=== PATIENT | female | born 1980 | race Caucasian/White ===

== ENCOUNTER → 2019-11-21 | Outpatient (REF) | payer MEDICAID, OTHER | LOC: M LAB REF 17:33 | PROVIDERS: ATTEND Physician Assistant | DX: R21 Rash and other nonspecific skin eruption (principal) ==

== ENCOUNTER → 2020-09-18 | Outpatient (CLI) | payer OTHER ==
[2020-09-18 18:15] LABS: C REACTIVE PROTEIN QUANTITATIV < 0.30 MG/DL (0.00-0.30); CPK CREATINE PHOSPHOKINASE 50 U/L (26-192); IRON (FE) 111 UG/DL (50-170); MAGNESIUM LEVEL 2.5 MG/DL (1.8-2.4); PHOSPHORUS LEVEL 3.5 MG/DL (2.5-4.9)
[2020-09-18 18:23] LABS: TOTAL 25(OH) VITAMIN D 12.3 NG/ML (30.0-100.0); VITAMIN B12 LEVEL 258 PG/ML (247-911)
[2020-09-21 19:14] LABS: ANA (HEP2) Negative (.)
== END ==
LOC: M LAB 16:36
PROVIDERS: ATTEND Internal Medicine
DX: M25.40 Effusion, unspecified joint (principal)

== ENCOUNTER → 2020-10-12 | Outpatient (CLI) | payer OTHER | LOC: M LAB 15:24 | PROVIDERS: ATTEND Internal Medicine Gastroenterology | DX: K58.1 Irritable bowel syndrome with constipation (principal) ==

== ENCOUNTER → 2020-10-26 | Outpatient (CLI) | payer OTHER ==
--- NOTE | 2020-10-28 16:19 | SLEEPHOME ---
DATE: 10/26/2020 ORDERED BY: Dr. Radha Escobar, Rheumatology Diagnostic home sleep testing was performed due to concern for the obstructive sleep apnea syndrome in this patient with a history of fatigue. For testing, a Niox T3 respiratory monitoring device was used. Continuous record was made of pulse, oxygen saturation, air flow, chest and abdominal strain, and body position. There was 4 hours and 47 minutes of data reviewed. During this interval, 25 respiratory events were identified of 10 seconds in duration or greater for a respiratory event index of 5.2. The events were primarily obstructive, more frequent but not exclusive to the supine posture. Baseline oxygen saturation was 92%. Saturations fell to 89%. Baseline pulse rate was 84. Pulse rate ranged 68-107. Testing was performed in both the supine and nonsupine positions. IMPRESSION: Abnormal home sleep testing with repetitive respiratory events and oxygen desaturations to 89% with a respiratory event index of 5.2 is consistent with the obstructive sleep apnea syndrome. RECOMMENDATION: As the respiratory events were associated most frequently with the supine posture, sleep position retraining for avoidance of the supine posture would be recommended. Should the patient's symptoms persist, referral for formal sleep evaluation could be considered.
== END ==
LOC: M SLEEP HO 11:41
PROVIDERS: ATTEND Internal Medicine
DX: R53.82 Chronic fatigue, unspecified (principal)

== ENCOUNTER → 2021-01-13 | Outpatient (CLI) | payer OTHER ==
[~2021-01-13] MED LIST: CLON1TAB8 PO; LINZ290C PO; NORT25CA2 PO; SERT50TA29 PO; ZOLP10TA2 PO
== END ==
LOC: M LABSMTC 10:06
PROVIDERS: ATTEND Anesthesiology
DX: Z01.812 Encounter for preprocedural laboratory examination (principal); Z20.822 Contact with and (suspected) exposure to COVID-19

== ENCOUNTER 2021-01-18 09:18 | Day surgery (SDC) | payer OTHER ==
[~2021-01-18] VITALS: Ht 172.7 cm; Wt 69.9 kg
[~2021-01-18 09:18] MED LIST changes: +NS 1,000 ML IV ONE
--- OUTSIDE RECORDS SUMMARY | 2021-01-18 09:23 | CCD | Continuity of Care Document ---
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 AUTM [phone] Problems Active Problems Provider Date Hand pain Melyssa Peña M.D. Onset: 10/08/2020 Numbness of hand Melyssa Peña M.D. Onset: 10/08/2020 Carpal tunnel syndrome Melyssa Peña M.D. Onset: 10/08/2020 Chronic neck pain Melyssa Peña M.D. Onset: 10/08/2020 Social History Type Date Description Comments Sex Unknown Tobacco Use Start: Unknown Patient is a current smoker, smo kes every day Allergies and adverse reactions Description No Known Drug Allergies Medications Active Medications SIG Qnty Indications Ordering Provide r Date Zonisamide 50mg Capsules 1 by mouth twice a day 60caps Melyssa Peña M.D. 01/04/2021 Cyanocobalamin 1000mcg/ML Solution 1 intramuscular every weekly for 4 weeks and then once a month 12units Melyssa Peña M.D. 01/04/2021 Tylenol 8 Hour 650mg Tablets ER Melyssa Peña M.D. 10/08/2020 Immunizations Description No Information Available Vital Signs Date Vital Result Comment 10/08/2020 8:36am BP Systolic 120 mmHg BP Diastolic 80 mmHg Heart Rate 72 /min Height 68 inches 5'8" Weight 141.00 lb BMI (Body Mass Index) 21.4 kg/m2 [place] Body Weight 140 lb Results Test Acquired Date Facility Test Result H/L Range Note Hgba1c + Eag 01/04/2021 [facility] HbA1c Bld-mCnc 5.0 % Normal 3.8-5.6 1, 2 Est. average glucose Bld gHb Est-sCnc 97 mg/dL 3 Laboratory test finding 01/04/2021 [facility] pital Folate SerPl-mCnc 6.5 ng/mL 4 T4 Free SerPl-mCnc 1.14 ng/dL Normal 0.89-1.76 TSH SerPl DL<=0.005 mIU/L-aCnc 0.69 u[iU]/mL Normal 0.35-5.50 Protein Electrophoresis Serum 01/04/2021 [facility] Protein, Total 7.2 g/dL 6.1-8.1 5 Albumin Spec-mCnc 4.4 g/dL 3.8-4.8 Alpha1 Glob SerPl Elph-mCnc 0.3 g/dL 0.2-0.3 Alpha2 Glob SerPl Elph-mCnc 0.9 g/dL 0.5-0.9 Laboratory studies 0.4 g/dL 0.4-0.6 Gamma glob SerPl Elph-mCnc 0.9 g/dL 0.8-1.7 Beta 2 Globulin 0.3 g/dL 0.2-0.5 Prot Pattern SerPl Elph-Imp SEE NOTE 6 Lupus Anticoag Comprehensive 01/04/2021 [facility] Hex Phase Phosp No Reportable Re <SEE NOTE> 7 LA 2 screen W Reflex-Imp see note 8 Screen aPTT 33 UCUM <=40 Screen dRVVT 34 UCUM <=45 Mixing studies PPP-Imp Not Indicated 9 Laboratory test finding 01/04/2021 [facility] pital Vit B6 SerPl-mCnc 2.9 ng/mL 2.1-21.7 10 Vitamin E 01/04/2021 [facility] A-Tocopherol Vit E SerPl-mCnc 10.5 mg/L 5.7-19.9 11 Beta+Gamma Tocopherol SerPl-mCnc <1.0 mg/L <=4.3 12 Laboratory test finding 01/04/2021 [facility] pital Vit B1 Bld-mCnc 84 UCUM 78-185 13 Vitamin E <pending> 1 PERIPHERAL POLYNEUROPATHY 2 The following ranges may be used for interpretation of results: HGBA1C degree of glucose control: Greater than 8%: Action Suggested * Less than 7%: Goal of Diabetic Therapy Less than 5.6%: Normal Factors such as duration of diabetes, adherence to therapy and the age of the patient should also be considered in assessing the degree of blood glucose control. * High risk of developing keno terminal operator complications such as retinopathy, nephropathy, neuropathy, cardiopathy, etc. Some danger of hypoglycemic reaction in Type I diabetics. Some glucose intolerant individuals and "Sub Clinical" diabetics may demonstrate HGBA1C levels in this area. 3 An A1C of 7% - the goal of d iabetic therapy - is equivalent to an EAG of 154 mg/dl. 4 FOLATE INTERPRETATION NORMAL: GREATER THAN 5.38 INDETERMINATE: 3.38 - 5.38 DEFICIENT: LESS THAN 3.37 5 THIS TEST WAS PERFORMED AT: [facility] [address] VENICE HERNANDEZ MD 6 Normal Electrophoretic Patte rn THIS TEST WAS PERFORMED AT: [facility] [address] VENICE HERNANDEZ MD 7 No Reportable Result 8 A Lupus Anticoagulant is not detected. Reference Range: Not Detected For additional information, please refer to http://education.Minilogs/faq/ZXG88g3 (This link is being provided for informa tional/ educational purposes only.) This interpretation is based on the following test results. 9 THIS TEST WAS PERFORMED AT: [facility] [address] CARRINGTON BONNER MD,PHD 10 Vitamin supplementation with in 24 hours prior to blood draw may affect the accuracy of the results. This test was developed and its analytical performance characteristics have been determined by [employer] [place], [place]. It has not been cleared or approved by the U.S. Food and Drug Administration. This assay has been validated pursuant to the CLIA regulations and is used for clinical purposes. THIS TEST WAS PERFORMED AT: [facility]/[employer] [address] CARRINGTON BONNER MD,PHD 11 Levels of alpha-tocopherol < 5 mg/L are consistent with Vitamin E deficiency in adults. 12 Vitamin supplementation with in 24 hours prior to blood draw may affect the accuracy of the results. This test was developed and its analytical performance characteristics have been determined by [employer] [place], [place]. It has not been cleared or approved by the U.S. Food and Drug Administration. This assay has been validated pursuant to the CLIA regulations and is used for clinical purposes. THIS TEST WAS PERFORMED AT: [facility]/[address] CARRINGTON BONNER MD,PHD 13 Vitamin supplementation with in 24 hours prior to blood draw may affect the accuracy of the results. This test was developed and its analytical performance characteristics have been determined by [employer] [place], [place]. It has not been cleared or approved by the U.S. Food and Drug Administration. This assay has been validated pursuant to the CLIA regulations and is used for clinical purposes. THIS TEST WAS PERFORMED AT: [facility]/[address] CARRINGTON BONNER MD,PHD Procedures Date Code Description Status 01/04/2021 39766 Office/Outpatient Established Mo d MDM 30-39 Min Completed 10/12/2020 12461 Nerve Conduction 13+ Studies Com pleted 10/12/2020 68121 Needle Electromyography Complete , Five Or More Muscles Studied Completed 10/12/2020 49341 Needle Electromyography Complete , Five Or More Muscles Studied Completed 10/08/2020 74488 Nerve Conduction 13+ Studies Com pleted 10/08/2020 98962 Needle Electromyogra phy Non Extremity Done With Nerve Conduction Completed 10/08/2020 01067 Needle Electromyogra phy Non Extremity Done With Nerve Conduction Completed 10/08/2020 72172 Needle Electromyography Complete , Five Or More Muscles Studied Completed 10/08/2020 54948 Needle Electromyography Complete , Five Or More Muscles Studied Completed Medical Devices Description No Information Available Encounters Type Date Location Provider Dx Diagnosis Office Visit 01/04/2021 12:30p Main office - Ankur Peña M.D. M47.892 Other spondylosis, cervical region M54.59 Other low back pain M47.896 Other spondylosis, lumbar re gion G43.819 Other migraine, intractable, without status migrainosus M54.2 Cervicalgia Assessments Date Code Description Provider 01/04/2021 M47.892 Other spondylosis, cervical toney on Melyssa Casey, M.D. 01/04/2021 M54.59 Other low back pain Melyssa Casey, M.D. 01/04/2021 M47.896 Other spondylosis, lumbar region Melyssa Casey, M.D. 01/04/2021 G43.819 Other migraine, intractable, wit hout status migrainosus Melyssa Casey, M.D. 01/04/2021 M54.2 Cervicalgia Melyssa Casey, M.D . 10/12/2020 M54.5 Low back pain Melsysa Casey, M.D . 10/12/2020 R20.2 Paresthesia of skin Melyssa Casey, M.D. 10/12/2020 G60.9 Hereditary and idiopathic neurop athy, unspecified Melyssa Casey, M.D. 10/08/2020 M79.641 Pain in right hand Melyssa Casey, M.D. 10/08/2020 G56.00 Carpal tunnel syndrome, unspecif ied upper limb Melyssa Casey, M.D. 10/08/2020 M79.642 Pain in left hand Melyssa Casey, M .D. 10/08/2020 M54.12 Radiculopathy, cervical region A bdul Casey, M.D. 10/08/2020 R20.2 Paresthesia of skin Melyssa Casey, M.D. Plan of Treatment Future Appointment(s):* 02/02/2021 10:30 am - Melyssa Peña M.D. at Main office - [place] Functional Status Description No Information Available Mental Status Description No Information Available Referrals Description No Information Available
--- OUTSIDE RECORDS SUMMARY | 2021-01-18 09:23 | CCD | Continuity of Care Document ---
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 AUTM [phone] Problems Active Problems Provider Date Hand pain [...] lb BMI (Body Mass Index) 21.4 kg/m2 [place] Body Weight 140 lb Results Test Acquired Date Facility Test Result H/L Range Note Hgba1c + Eag 01/04/2021 [facility] HbA1c Bld-mCnc 5.0 % Normal 3.8-5.6 1, 2 Est. average glucose Bld gHb Est-sCnc 97 mg/dL 3 Laboratory test finding 01/04/2021 [facility] pital Folate SerPl-mCnc 6.5 ng/mL 4 T4 Free SerPl-mCnc 1.14 ng/dL Normal 0.89-1.76 TSH SerPl DL<=0.005 mIU/L-aCnc 0.69 u[iU]/mL Normal 0.35-5.50 Protein Electrophoresis Serum 01/04/2021 [facility] Protein, Total 7.2 g/dL 6.1-8.1 5 Albumin Spec-mCnc 4.4 g/dL 3.8-4.8 Alpha1 Glob SerPl Elph-mCnc 0.3 g/dL 0.2-0.3 Alpha2 Glob SerPl Elph-mCnc 0.9 g/dL 0.5-0.9 Laboratory studies 0.4 g/dL 0.4-0.6 Gamma glob SerPl Elph-mCnc 0.9 g/dL 0.8-1.7 Beta 2 Globulin 0.3 g/dL 0.2-0.5 Prot Pattern SerPl Elph-Imp SEE NOTE 6 Lupus Anticoag Comprehensive 01/04/2021 [facility] Hex Phase Phosp No Reportable Re <SEE NOTE> 7 LA 2 screen W Reflex-Imp see note 8 Screen aPTT 33 UCUM <=40 Screen dRVVT 34 UCUM <=45 Mixing studies PPP-Imp Not Indicated 9 Laboratory test finding 01/04/2021 [facility] pital Vit B6 SerPl-mCnc 2.9 ng/mL 2.1-21.7 10 Vitamin E 01/04/2021 [facility] A-Tocopherol Vit E SerPl-mCnc 10.5 mg/L 5.7-19.9 11 Beta+Gamma Tocopherol SerPl-mCnc <1.0 mg/L <=4.3 12 Laboratory test finding 01/04/2021 [facility] pital Vit B1 Bld-mCnc 84 UCUM 78-185 [...] glucose control. * High risk of developing roasterman complications such as retinopathy, nephropathy, neuropathy, cardiopathy, [...] 3.37 5 THIS TEST WAS PERFORMED AT: [facility] [id number] VENICE HERNANDEZ MD 6 Normal Electrophoretic Patte rn THIS TEST WAS PERFORMED AT: [facility] [phone] VENICE HERNANDEZ MD 7 No Reportable Result 8 A Lupus Anticoagulant is not detected. Reference Range: Not Detected For additional information, please refer to http://education.WeatherBug/faq/WKE44h3 (This link is being provided for informa tional/ educational purposes only.) This interpretation is based on the following test results. 9 THIS TEST WAS PERFORMED AT: [facility] [address] CARRINGTON BONNER MD,PHD 10 Vitamin supplementation with in 24 hours prior to blood draw may affect the accuracy of the results. This test was developed and its analytical performance characteristics have been determined by [facility] [place], [place]. It has not been cleared or approved by the U.S. Food and Drug Administration. This assay has been validated pursuant to the CLIA regulations and is used for clinical purposes. THIS TEST WAS PERFORMED AT: [facility] [address] CARRINGTON BONNER MD,PHD 11 Levels of alpha-tocopherol < 5 mg/L are consistent with Vitamin E deficiency in adults. 12 Vitamin supplementation with in 24 hours prior to blood draw may affect the accuracy of the results. This test was developed and its analytical performance characteristics have been determined by [employer] [place], [place]. It has not been cleared or approved by the U.S. Food and Drug Administration. This assay has been validated pursuant to the CLIA regulations and is used for clinical purposes. THIS TEST WAS PERFORMED AT: [facility]/[address] CARRINGTON BONNER MD,PHD 13 Vitamin supplementation with in 24 hours prior to blood draw may affect the accuracy of the results. This test was developed and its analytical performance characteristics have been determined by [employer] [place], [place]. It has not been cleared or approved by the U.S. Food and Drug Administration. This assay has been validated pursuant to the CLIA regulations and is used for clinical purposes. THIS TEST WAS PERFORMED AT: [facility]/[address] CARRINGTON BONNER MD,PHD Procedures Date Code Description Status 01/04/2021 74777 Office/Outpatient Established Mo d MDM 30-39 Min Completed 10/12/2020 63700 Nerve Conduction 13+ Studies Com pleted 10/12/2020 51788 Needle Electromyography Complete , Five Or More Muscles Studied Completed 10/12/2020 90231 Needle Electromyography Complete , Five Or More Muscles Studied Completed 10/08/2020 41139 Nerve Conduction 13+ Studies Com pleted 10/08/2020 67593 Needle Electromyogra phy Non Extremity Done With Nerve Conduction Completed 10/08/2020 92474 Needle Electromyogra phy Non Extremity Done With Nerve Conduction Completed 10/08/2020 27978 Needle Electromyography Complete , Five Or More Muscles Studied Completed 10/08/2020 19683 Needle Electromyography Complete , Five Or More [...] M.D . 10/12/2020 M54.5 Low back pain Melyssa Casey, M.D . 10/12/2020 R20.2 Paresthesia of [...] Melyssa Peña M.D. at Main office - [place] Functional Status Description No Information Available Mental Status Description No Information Available Referrals Description No Information Available
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
--- OUTSIDE RECORDS SUMMARY | 2021-01-18 09:24 | CCD ---
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 I suspect that her trouble focusing that is improved by clonazepam and packed uncontrolled anxiety. We'll consider an MRI at next visit if no improvement on higher dose of sertraline ANNUAL PE-followup exam/30 with Henrik Zavala MD 08/05/2020 Routine adult history and physical (18 - 64 yrs) ANNUA L PE-followup exam/30 with Henrik Zavala MD 08/05/2020 Fibromyalgia sick [...] historical Medications Current Medications (continue as prescribed) Sertraline HCl 100 MG Oral Tablet 08/05/2020 Provid er: Henrik Zavala MD Diagnosis: Generalized anxiety disorder 1 PO QD clonazePAM 1 MG Oral Tablet 06/11/2020 Provider: Henrik Zavala MD Diagnosis: Generalized anxiety disorder 1 PO QD prn MDD=1 Reference#: [id number] Code A Zolpidem Tartrate 10 MG Oral Tablet 05/07/2020 Prov ider: Henrik Zavala MD Diagnosis: Other insomnia qhs prn #: [id number] MDD=1 Ciclopirox Olamine 0.77% External Cream 12/10/2019 Provider: Zoie BRAMBILA Diagnosis: Chantix Starting Month Pedrito 0.5 MG X 11 & 1 MG X 42 Oral Tabl et 2019 Provider: Henrik Zavala MD Diagnosis: use as directed Chantix Continuing Month Pedrito 1 MG Oral Tablet 2019 Provider: Henrik Zavala MD Diagnosis: 1 PO BID [facility] Melatonin 5 MG Oral Capsule 08/05/2019 Provider : Diagnosis: Past Medications on file Sertraline HCl 50 MG Oral Tablet 07/31/2020 - 08/05/2020 Pro vider: Henrik Zavala MD Diagnosis: 1 PO QD Belsomra 20 MG Oral Tablet 05/01/2020 - 05/07/2020 Provider: Henrik Zavala MD Diagnosis: 1 PO Q #: [id number] MDD=1 clonazePAM 1 MG Oral Tablet 05/01/2020 - 06/11/2020 Provider : Henrik Zavala MD Diagnosis: Generalized anxiety disorder 1 PO QD prn MDD=1 Reference#: [id number] Belsomra 20 MG Oral Tablet 04/24/2020 - 04/24/2020 Provider: Henrik Zavala MD Diagnosis: 1 PO QHS #: [id number] MDD=1 clonazePAM 1 MG Oral Tablet 04/01/2020 - 05/01/2020 Provider : Henrik Zavala MD Diagnosis: Generalized anxiety disorder 1 PO QD prn MDD=1 Reference#: [id number] Sertraline HCl 50 MG Oral Tablet 03/23/2020 - 07/31/2020 Pro vider: Henrik Zavala MD Diagnosis: 1 PO QD clonazePAM 1 MG Oral Tablet 02/27/2020 - 04/01/2020 Provider : Nguyen Garcia [facility]- Diagnosis: Generalized anxiety disorder 1 PO QD prn MDD=1 Reference #: [id number] Sertraline HCl 50 MG Oral Tablet 01/27/2020 - 03/23/2020 Pro vider: Henrik Zavala MD Diagnosis: 1 PO QD clonazePAM 1 MG Oral Tablet 01/22/2020 - 02/27/2020 Provider : Henrik Zavala MD Diagnosis: Generalized anxiety disorder 1 PO QD prn #: [id number] MDD=1 Nortriptyline HCl 25 MG Oral Capsule 2019 - 04/27/2020 Provider: Henrik Zavala MD Diagnosis: Fibromyalgia 1 PO QHS clonazePAM 1 MG Oral Tablet 09/02/2019 - 12/07/2019 Provider : Henrik Zavala MD Diagnosis: 1 PO QHS Code A #: [id number] MDD=1mg Nortriptyline HCl 10 MG Oral Capsule [...] Recorded Vital Signs Includes: Vital Signs from 08/06/2019 through 08/05/2020 Vital Name 08/05/2020 12:58P 04/23/2020 02:05P 12/07/2019 10:38A 2019 10:02A Blood Pressure Sitting (mmHg) 118/76 116/72 126/78 Pulse Rate-Sitting (bpm) 72 72 68 72 Respiration Rate (breaths/min) 20 18 20 18 Height (in) 68 68 68 68 Weight (lb) 139 139.8 141 Body Mass Index (kg/m2) 21.1 21.3 21.4 Body Surface Area (m2) 1.75 1.76 1.76 Blood Pressure Sitting R 120/74 BP Cuff Size Regular Results Includes: Results from 08/06/2019 through 08/05/2020 CBC W AUTO DIFF [facility] Ordered by Henrik Zavala MD [...] Auto See Note (0-2) N (Normal) Note: [id number] Ob server systems administrator: IG% IG% 100.1375 (B) Hct VFr Bld [...] test results are final unless otherwise noted. [facility] Ordered by Henrik Zavala MD on [...] results are final unless otherwise noted. LYMERFX [facility] Ordered by Henrik Zavala MD [...] when erythemamigrans is apparent.THIS TEST WAS PERFORMED AT:[email or web address] [address]NQBGPUNain CHO Reportable ResultLTNPNo Reportable ResultLLEP.LIVENTNPResponsible Observer: LYME AB SCREEN LYME AB SCREEN [id number] 911.8135 ([facility]) Reviewed by Henrik Zavala MD on 04/28/2020; All test results are final unless otherwise noted. Reported Physicians [facility] Ordered by Henrik Zavala MD on 04/23/2020 Collected: 04/23/2020 Reported: 04/27/2020 19:23 Reported Physicians See Note None Note: Reported Physicians:Ordering: Henrik Parekhding: Henrik Zavala Reviewed by Henrik Zavala MD on 04/28/2020; All test results are final unless otherwise noted. SED RATE [facility] Ordered by Henrik Zavala MD on 04/23/2020 Collected: 04/23/2020 Reported: 04/23/2020 15:57 ESR Bld Qn Westrgrn 5 (0-20) N (Normal) Note: @Severino manual test result: 5@by Karey Ireland at 04/23/20 4547.Responsible Observer: SED RATE SED RATE 100.6400 (B) Reviewed by Henrik Zavala MD on 04/24/2020; All test results are final unless otherwise noted. CRP, C-REACTIVE PROTEIN [facility] Ordered by Henrik Zavala MD on 04/23/2020 Collected: 04/23/2020 Reported: 04/23/2020 16:20 CRP SerPl-mCnc Less Than 2.9 (0.0-5.0) N (Normal) Note: @Report as less than lower limitRe sponsible Observer: CRP C-Reactive Protein 401.4355 (H) Reviewed by Henrik Zavala MD on 04/24/2020; All test results are final unless otherwise noted. Reported Physicians [facility] Ordered by Henrik Zavala MD on 04/23/2020 Collected: 04/23/2020 Reported: 04/23/2020 16:20 Reported Physicians See Note None Note: Reported Physicians:Ordering: Henrik Parekh: Henrik Zavala Reviewed by Henrik Zavala MD on 04/24/2020; All test results are final unless otherwise noted. TSH [facility] Ordered by Henrik Zavala MD on 04/23/2020 Collected: 04/23/2020 Reported: 04/23/2020 16:20 TSH SerPl DL<=0.005 mIU/L-aCnc 1.37 MicroInternationalUnitsPerMilliLiter_[Arbitrary_Con (0.35-5. 50) N (Normal) Note: Responsible Observer: TSH TSH 600 .7055 (D) Reviewed by Henrik Zavala MD on 04/28/2020; All test results are final unless otherwise noted. Reported Physicians [facility] Ordered by Henrik Zavala MD on 04/23/2020 Collected: 04/23/2020 Reported: 04/23/2020 16:20 Reported Physicians See Note None Note: Reported Physicians:Ordering: Henrik Parekh: Henrik Zavala Reviewed by Henrik Zavala MD on 04/28/2020; All test results are final unless otherwise noted. FREE T4 (LAB) [facility] Ordered by Henrik Zavala MD on 04/23/2020 Collected: 04/23/2020 Reported: 04/23/2020 16:20 T4 Free SerPl-mCnc 1.19 NanoGramsPerDeciLiter_[Mass_Concentration_Units] (0.89-1.76) N (Normal) Note: Responsible Observer: FREE T4 Free Thyroxine 600.7005 (D) Reviewed by Henrik Zavala MD on 04/24/2020; All test results are final unless otherwise noted. Reported Physicians [facility] Ordered by Henrik Zavala MD on 04/23/2020 Collected: 04/23/2020 Reported: 04/23/2020 16:20 Reported Physicians See Note None Note: Reported Physicians:Ordering: Henrik Parekh: Henrik Zavala Reviewed by Henrik Zavala MD on 04/24/2020; All test results are final unless otherwise noted. RHEUMATOID FACTOR [facility] Ordered by Henrik Zavala MD on 04/23/2020 Collected: 04/23/2020 Reported: 04/23/2020 16:20 Rheumatoid fact Ser Neph-aCnc Less Than 10.0 (0.0-14.0) N (Normal) Note: Responsible Observer: RA Rheumatoi d Factor 800.1055 (B) Reviewed by Henrik Zavala MD on 04/24/2020; All test results are final unless otherwise noted. 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 Smoking Status Unknown Procedures and Surgical History Includes: Procedures from 08/06/2019 through 08/05/2020 Procedures Code Diagnosis Performing Provider Service Location Service Date Flucelvax multidose PRIVATE(ages 4 & older) [address] [facility] ounter for immunization Henrik Zavala MD [facility], [facility] 12/07/2019 ADMINISTRATION 1-IMMUNIZATION(adult) [address] Encounter f or immunization Henrik Zavala MD [facility], [facility] 12/07/2019 Surgical History Last Updated History of arthroscopy of the knee R knee 2014-15 12/2019 History of total hysterectomy 2012 for [...] document type Description The memory was unimpaired No memory lapses or loss Anxiety Feels his stress levels are hig h and sometimes interfering with intimacy and concentration or focus. Interestingly she finds if she doesn't take clonazepam for a few days she starts to have more trouble focusing during the day. Denies any severe or vegetative type depression and she is doing regular exercise. Continues to struggle with some fibromyalgia symptoms A desire to continue living No suicidal tendency Functional Status Functional Status not supported for this document typeNo Functional Status Recorded Physical Exam Physical Exam not supported for this document typeNo Physical Exam Recorded Immunizations Includes: Immunizations in patient's chart Vaccine Dose # Date Site Reaction(s) Status Source Influenza, seasonal, injectable 1 12/07/2019 Left Deltoid Complete (Administered) [facility] Moderna COVID-19 vaccine 1 05/28/2020 Complete (Re ported) Patient Moderna COVID-19 vaccine 2 06/25/2020 Complete (Re ported) Patient Allergies Includes: Active, inactive, and resolved AllergiesNo Known Allergies Encounters Includes: Encounters from 08/06/2019 through 08/05/2020 Encounter Provider Location Date Check-In Time Check-Out Time D iagnosis ANNUAL PE-followup exam Henrik Zavala MD [facility], [facility] 08/05/2020 12:53PM 1:35PM Generalized Anxi ety Disorder, Routine History and Physical Adult (18 - 64 Yrs) [Patient Encounter] Henrik Zavala MD 07/06/2020 0 04/23/2020 7:39AM 04/23/2020 11:59PM [Patient Encounter] Henrik Zavala MD 06/11/2020 0 04/23/2020 5:13PM 04/23/2020 11:59PM [Patient Encounter] Henrik Zavala MD 04/24/2020 0 04/23/2020 4:56PM 04/23/2020 11:59PM sick visit Henrik Zavala MD [facility], [facility] 04/23/2020 1:53PM 2:55PM Fibromyalgia, Second noah Insomnia [Patient Encounter] Henrik Zavala MD 01/22/2020 1 4:34PM 12/07/2019 11:59PM followup Henrik Zavala MD [facility], [facility] 12/07/2019 10:23AM 10:58AM Generalized Anxiety Disorder , Secondary Insomnia followup Henrik Zavala MD [facility], [facility] 2019 9:49AM 10:22AM Fibromyalgia, Dermatomycosis Tinea Versicolor Insurance Includes: Active Insurance Policies Plan Name Member ID Group # Subscriber Relationship Effective Da inez 1 - R Insurance [id number] Hugo Newman Advance Directives Includes: Current Advance DirectivesNo Advance Directives Recorded Health Concerns Includes: Active Health ConcernsNo Active Health Concerns Recorded Goals Includes: Active GoalsNo Active Goals Recorded Interventions Includes: Interventions for active GoalsNo Interventions Recorded Evaluations & Outcomes Includes: Evaluations & Outcomes for active GoalsNo Outcomes Recorded
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
--- OUTSIDE RECORDS SUMMARY | 2021-01-18 09:24 | CCD | Continuity of Care Document ---
Author Author Cathryn BARRY Organization Unknown Address [address] [place] [address] Phone [phone] Care Team Providers Care Director Of Government Sales Name Role Phone Henrik Zavala MD [facility] [phone] Problems Description No Information Available Social History Type Date Description Comments Sex Unknown Allergies and adverse reactions Description No Information Available Medications Description No Information Available Immunizations Description No Information Available Vital Signs Description No Information Available Results Description No Information Available Procedures Description No Information Available Medical Devices Description No Information Available Encounters Description No Information Available Assessments Date Code Description Provider 12/18/2020 Z20.828 Contact with and (gutiérrez spected) exposure to other viral communicable diseases PATTY Polanco Plan of Treatment No Information Available Functional Status Description No Information Available Mental Status Description No Information Available Referrals Description No Information Available
--- OUTSIDE RECORDS SUMMARY | 2021-01-18 09:24 | CCD ---
Continuity of Care Document (CCD) Created on: 12/18/2020 Cathryn Newman External Reference #: [id number] : [id number] Sex: Female Author Author Cathryn BARRY [facility] Organization Unknown Address [address] [place] [address] Phone [phone] Care Team Providers Care Software Development Advisor Name Role Phone Henrik Zavala MD [facility] [phone] Problems Description No Information Available Social History Type Date Description Comments Sex Unknown Allergies and adverse reactions Description No Information Available Medications Description No Information Available Immunizations Description No Information Available Vital Signs Description No Information Available Results Description No Information Available Procedures Description No Information Available Medical Devices Description No Information Available Encounters Description No Information Available Assessments Description No Information Available Plan of Treatment No Information Available Functional Status Description No Information Available Mental Status Description No Information Available Referrals Description No Information Available
--- OUTSIDE RECORDS SUMMARY | 2021-01-18 09:24 | CCD | Continuity of Care Document ---
Author Cathryn Heath M.D. Organization Unknown Address [address] [place] [address] Phone [phone] Care Team Providers Care Business Analysis Consultant Name Role Phone Henrik Zavala M.D. AUTM [phone] Problems Active Problems Provider Date Hand pain [...] lb BMI (Body Mass Index) 21.4 kg/m2 [place] Body Weight 140 lb Results Test Acquired Date Facility Test Result H/L Range Note Hgba1c + Eag 01/04/2021 [facility] HbA1c Bld-mCnc 5.0 % Normal 3.8-5.6 1, 2 Est. average glucose Bld gHb Est-sCnc 97 mg/dL 3 Laboratory test finding 01/04/2021 [facility] Folate SerPl-mCnc 6.5 ng/mL 4 T4 Free SerPl-mCnc 1.14 ng/dL Normal 0.89-1.76 TSH SerPl DL<=0.005 mIU/L-aCnc 0.69 u[iU]/mL Normal 0.35-5.50 Protein Electrophoresis Serum 01/04/2021 [facility] Protein, Total 7.2 g/dL 6.1-8.1 5 1 PERIPHERAL POLYNEUROPATHY 2 The following ranges [...] glucose control. * High risk of developing exterminator helper termite complications such as retinopathy, nephropathy, neuropathy, cardiopathy, [...] 3.37 5 THIS TEST WAS PERFORMED AT: [id number] [id number] VENICE HERNANDEZ MD Procedures Date Code Description Status 01/04/2021 35663 Office/Outpatient Established Mo d MDM 30-39 Min Completed 10/12/2020 94101 Nerve Conduction 13+ Studies Com pleted 10/12/2020 94383 Needle Electromyography Complete , Five Or More Muscles Studied Completed 10/12/2020 00537 Needle Electromyography Complete , Five Or More Muscles Studied Completed 10/08/2020 25474 Nerve Conduction 13+ Studies Com pleted 10/08/2020 70567 Needle Electromyogra phy Non Extremity Done With Nerve Conduction Completed 10/08/2020 05922 Needle Electromyogra phy Non Extremity Done With Nerve Conduction Completed 10/08/2020 83405 Needle Electromyography Complete , Five Or More Muscles Studied Completed 10/08/2020 40682 Needle Electromyography Complete , Five Or More Muscles Studied Completed Medical Devices Description No Information Available Encounters Type Date Location Provider Dx Diagnosis Office Visit 01/04/2021 12:30p Main office - [place] Melyssa Casey, M.D. M47.892 Other spondylosis, cervical region M54.59 [...] 10:30 am - Melyssa Peña M.D. at [facility] Functional Status Description No Information Available Mental Status Description No Information Available Referrals Description No Information Available
--- OUTSIDE RECORDS SUMMARY | 2021-01-18 09:25 | CCD ---
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 4 30001436 Problem Vitamin D deficiency E55.9 Active confirmed 92904197 Problem Anorexia nervosa 307.1 Active confirmed 568 53955 Problem Depressive disorder, not elsewhere classified 311 Active confirmed 94576513 Problem Paresthesia R20.2 Active confirmed 74228326 Problem Chronic fatigue R53.82 Active confirmed 8422 9001 ALLERGIES No Known Allergies ENCOUNTERS from 1982 to 2020-11-15 Encounter Location Date Provider Diagnosis [facility] [address] [place] [address] [place] [address] Oct, Radha Escobar Vitamin D deficiency E55.9 ; 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 ; Joint swelling M25.40 ; Myalgia M79.10 ; Paresthesia R20.2 ; Chronic fatigue R53.82 ; Frequent headaches R51.9 ; Abdominal bloating R14.0 and Facial numbness R20.0 IMMUNIZATIONS Vaccine Route Administration Date Status COVID-19 dose #2 given elsewhere Unspecified Unknown Apr 2020 Administered COVID-19 dose #1 given elsewhere Unspecified Unknown Apr 2020 Administered SOCIAL HISTORY Tobacco Use: Social History Observation Description Date Details (start date - stop date) Former Smoker Sex Assigned At : Social History Observation Description Sex Assigned At Unknown Alcohol Screening: Question Answer Notes Did you have a drink containing alcohol in the past year? No Points 0 Interpretation Negative Tobacco Use: Question Answer Notes Are you a: former smoker Recently quit darlene tom 08/2020 REASON FOR REFERRAL No Information VITAL SIGNS Weight 149.8 lbs Oct, Weight-kg 67.95 kg Oct, Height 68 in Oct, BMI 22.77 kg/m2 Oct, Heart Rate 110 /min Oct, Respiratory Rate 20 /min Oct, Temperature 97.8 degrees Fahrenheit Oct, Oximetry 98 Oct, Blood pressure systolic 108 mm Hg Oct, Blood pressure diastolic 76 mm Hg Oct, MEDICATIONS Medication SIG (Take, Route, Frequency, Duration) Notes Start Da te End Date Status Sertraline HCl 100 MG TAKE ONE TABLET BY MOUTH EVERY DAY Oral for 90 Active clonazePAM 1 MG (Schedule IV Drug) TAKE ONE TABLET BY MOUTH EVERY DAY NEEDED MAXIMUM DAILY DOSE 1 Oral for 90 Active Zolpidem Tartrate 10 MG (Schedule IV Drug) TAKE ONE TABLET BY MOUTH EVERY EVENING AT BEDTIME NEEDED MAXIMUM DAILY DOSE ONE TABLET Oral for 25 Active Nortriptyline HCl 25 MG TAKE ONE CAPSULE BY MOUTH EV VERITO DAY AT BEDTIME Oral for 30 Active Constulose 10 GM/15ML 15 ml Orally twice daily as needed Active Chantix 1 MG TAKE ONE TABLET BY MOUTH TWICE A DAY Oral for 28 Not-Taking Vitamin D (Ergocalciferol) 1.25 MG (93548 UT) 1 capsul e Orally Weekly for 30 day(s) Active Magnesium 250 MG 1 tablet with a meal Orally Once a day for 30 day(s) Active PROCEDURES No Information RESULTS No Results REASON FOR VISIT C/o bilateral leg pain and stiffness MEDICAL (GENERAL) HISTORY Type Description Date Medical History Anxiety/depression(Dr Álvarez) Medical History Sudden weight loss Medical History Endometriosis Medical History Interstitial cystitis Medical History Psychologist- Luis Cardoza Medical History Hx migranes Medical History Fibromyalgia Medical History Vitamin D Deficiency Surgical History Laparoscopy 2005 Surgical History Uterine ablasion 2010 Surgical History Laproscopic supracervical hysterectomy Surgical History Right knee surgery x2 Hospitalization History Surgery related Hospitalization History Child x2 2004,2006 Goals Section No Information Health Concerns No Information MEDICAL EQUIPMENT No Information MENTAL STATUS No Information FUNCTIONAL STATUS No Information ASSESSMENTS Encounter Date Diagnosis Assessment Notes Treatment Notes Treatm ent Clinical Notes Oct, Vitamin D deficiency (ICD-10 - E55.9) 09/18/2020 Vitamin D 12.3 ng/mL (30-100) - Clinical presentation is exacerbated by vitamin D deficiency. Low vitamin D can be associated with fatigue, muscle weakness, muscle pain. The patient is actively supplemented with vitamin D 50,000 units x 8 weeks, which will improve the musculoskeletal health. Discussed foods with increased amounts of vitamin D (including tuna and salmon). Information concerning vitamin D provided. Oct, Magnesium disorder (ICD-10 - E83.40) 09/18/2020 Magnesium 2.5 mg/dL (1.8-2.4) - History of Magnesium disorder; will monitor the magnesium level closely. Oct, Joint swelling (ICD-10 - M25.40) There is swelling in left PIP (4,5) and ankle joints. No clinical suspicion of inflammatory arthritis at this time; inflammatory markers are normal and anti- nuclear antibody, rheumatoid factor, & ccp negative. Based on the symptomatology, physical examination, and laboratory evaluation, no further evaluation is needed. Oct, Myalgia (ICD-10 - M79.10) Given the widespread pain and somatic symptoms, further investigation was performed. Expect improvement in the symptomatology with vitamin D supplementation. Nutritional deficiencies can contribute to increased joint pain and muscle aches - vitamin B12 on the lower end of normal. Encouraged the patient to increase foods with vitamin D and vitamin B12; information provided today. Oct, Paresthesia (ICD-10 - R20.2) Given the paresthesias of the upper and lower extremities, an EMG of the upper and lower extremities were within normal limits. Oct, Chronic fatigue (ICD-10 - R53.82) Given the chronic fatigue and sleep symptomatology, the home sleep study to r/o an underlying sleep disorder - pending. Oct, Frequent headaches (ICD-10 - R51.9) Will defer to neurology for the chronic headaches. Oct, Abdominal bloating (ICD-10 - R14.0) Will defer to gastroenterology for the intermittent diarrhea, constipation, and abdominal bloating. Oct, Facial numbness (ICD-10 - R20.0) Will defer to neurology for further evaluation of the facial numbness. PLAN OF TREATMENT Medication Medication Name Sig Start Date Stop Date Vitamin D (Ergocalciferol) 1.25 MG (18277 UT) 1 capsul e Orally Weekly for 30 day(s) Treatment Notes Assessment Notes Clinical Notes Vitamin D deficiency 09/18/2020 Vitamin D 12.3 ng/mL (30-100) - Clinical presentation is exacerbated by vitamin D deficiency. Low vitamin D can be associated with fatigue, muscle weakness, muscle pain. The patient is actively supplemented with vitamin D 50,000 units x 8 weeks, which will improve the musculoskeletal health. Discussed foods with increased amounts of vitamin D (including tuna and salmon). Information concerning vitamin D provided. Magnesium disorder 09/18/2020 Magnesium 2.5 mg/dL (1.8-2.4) - History of Magnesium disorder; will monitor the magnesium level closely. Joint swelling There is swelling in left PIP (4,5) and ankle joints. No clinical suspicion of inflammatory arthritis at this time; inflammatory markers are normal and anti-nuclear antibody, rheumatoid factor, & ccp negative. Based on the symptomatology, physical examination, and laboratory evaluation, no further evaluation is needed. Myalgia Given the widespread pain and somatic symptoms, further investigation was performed. Expect improvement in the symptomatology with vitamin D supplementation. Nutritional deficiencies can contribute to increased joint pain and muscle aches - vitamin B12 on the lower end of normal. Encouraged the patient to increase foods with vitamin D and vitamin B12; information provided today. Paresthesia Given the paresthesi as of the upper and lower extremities, an EMG of the upper and lower extremities were within normal limits. Chronic fatigue Given the chronic fa tigue and sleep symptomatology, the home sleep study to r/o an underlying sleep disorder - pending. Frequent headaches Will defer to neurol ogy for the chronic headaches. Abdominal bloating Will defer to gastro enterology for the intermittent diarrhea, constipation, and abdominal bloating. Facial numbness Will defer to neurol ogy for further evaluation of the facial numbness. Future Test Test Name Order Date MAGNESIUM LEVEL [id number] VITAMIN D 25-HYDROXY [id number] Next Appt Details Provider Name:Radha Escobar, 2021-04-29 11:45:00 AM, [address] [place] [address], , [place], [address], Insurance Providers Payer Name Payer Address Payer Phone Insured Name Patient Relati onship to Insured Coverage Start Date Coverage End Date [facility] [address] [address] [facility] [id number] EMA PARADA self
--- OUTSIDE RECORDS SUMMARY | 2021-01-18 09:25 | CCD | Continuity of Care Document ---
Author Author Cathryn LEMONS MD Organization Unknown Address [address] [place] [address] Phone [phone] Care Team Providers Care Electronic Prepress Operator Name Role Phone Radha Escobar M.D. AUTM [phone] Problems Description No Information Available Social History Type Date Description Comments Sex Unknown ETOH Use Denies alcohol use Tobacco Use Start: Unknown Non Smoker Allergies, Adverse Reactions, Alerts Description No Known Drug Allergies Medications Active Medications SIG Qnty Indications Ordering Provide r Date Lactulose 10GM/15ML Solution take 30 milliliters by mouth bid. may increase to 45 milliliters twice a day if necessary. (constipation) 1892ml K58.1 So Lemons MD 10/12 Magnesium Citrate 1.745GM/30ML Jessica ution one 10 oz bottle green or clear only, use for additional prep at 2-3 days before procedure 296ml K58.1 So Lemons MD 10/12/2020 Miralax 17GM/Scoop Powder use as directed see dr lemons colon preparation instructions 510gm K58.1 Alexander Lemons MD 10/12/2020 Nortriptyline HCL 25mg Capsules Unknown Zolpidem Tartrate 10mg Tablets daily Unknown Sertraline HCL 100mg Tablets 1 by mouth every day Unknown Magnesium 400mg Tablets 1 by mouth every day Unknown Vitamin D3 1.25mg (54265 Ut) Capsu les 1 time weekly Unknown Immunizations Description No Information Available Vital Signs Date Vital Result Comment 10/12/2020 2:13pm BP Systolic 125 mmHg BP Diastolic 86 mmHg Height 68 inches 5'8" Weight 145.00 lb BMI (Body Mass Index) 22.0 kg/m2 [place] Body Weight 140 lb Weight 65.772 kg BSA (Body Surface Area) 1.78 m2 Results Test Acquired Date Facility Test Result H/L Range Note Laboratory test finding 10/12/2020 [facility] [address] [place] [address] [phone] Tissue Transglutaminase IgA <2 U/mL Normal 0-3 1 Immunoglobulin A 111.0 mg/dL Normal 70-400 2 1 Negative 0 - 3 Weak Positive 4 - 10 Positive >10 . Tissue Transglutaminase (tTG) has been identified as the endomysial antigen. Studies have demonstr- ated that endomysial IgA antibodies have over 99% specificity for gluten sensitive enteropathy. Performed at: RN - [facility] [address] [id number] Coding Quality Analyst: Miladys Mckeon MD, Phone: [phone] 11/09/20 (MonNov 09) 06:38 PM SO LEMONS neg Procedures Date Code Description Status 10/12/2020 73806 Office/Outpatient New Moderate M DM 45-59 Minutes Completed Medical Devices Description No Information Available Encounters Type Date Location Provider Dx Diagnosis Office Visit 10/12/2020 2:15p [facility] So Lemons MD K58.1 Irritable bowel syndrome wit h constipation Assessments Date Code Description Provider 10/12/2020 K58.1 Irritable bowel syndrome with co nstipation So Lemons MD Plan of Treatment Future Appointment(s):* 01/18/2021 2:00 am - So Lemons MD at [facility] 10/12/2020 - So Lemons MD* K58.1 Irritable bowel syndrome with constipation * * New Medication:* Lactulose 10 GM/15ML * Magnesium Citrate 1.745 GM/30ML * Miralax 17 GM/Scoop * Recommendations:* 1) Laxative regimen.-- She has tried and failed OTC laxatives, Miralax, Stool softner and fiber products. i will start her on lactulose daily use. if ineffective, will advance to Linzess or Trulance 2) Colonoscopy Functional Status Description No Information Available Mental Status Description No Information Available Referrals Refer to Reason for Referral Status Appt Date So Lemons M.D. DIARRHEA, CONSTIPATION Scheduled 09/27 [facility], Gastroenterology [address] [facility], [address] [place] [address] [phone]
--- OUTSIDE RECORDS SUMMARY | 2021-01-18 09:26 | CCD ---
Author Author [facility] Address Unknown Phone Unavailable Care Team Providers Care Sales Representative Graphic Art Name Role Phone Sophia Peña Unavailable Unavailable Sophia Peña Unavailable Unavailable Sophia Peña Unavailable Unavailable Sophia Peña Unavailable Unavailable Sophia Peña Unavailable Unavailable Sophia Peña Unavailable Unavailable Sophia Peña Unavailable Unavailable Sophia Peña Unavailable Unavailable Sophia Peña Unavailable Unavailable Sophia Peña Unavailable Unavailable Sophia Peña Unavailable Unavailable Sophia Peña Unavailable Unavailable Sophia Peña Unavailable Unavailable Sophia Peña Unavailable Unavailable Casey, Melyssa MD Unavailable Unavailable Casey, Melyssa MD Unavailable Unavailable Casey, Melyssa MD Unavailable Unavailable Casey, Melyssa MD Unavailable Unavailable Casey, Melyssa MD Unavailable Unavailable Casey, Melyssa MD Unavailable Unavailable Casey, Melyssa MD Unavailable Unavailable Casey, Melyssa MD Unavailable Unavailable Casey, Melyssa MD Unavailable Unavailable Casey, Melyssa MD Unavailable Unavailable Casey, Melyssa MD Unavailable Unavailable Casey, Melyssa MD Unavailable Unavailable Casey, Melyssa MD Unavailable Unavailable Casey, Melyssa MD Unavailable Unavailable Casey, Melyssa MD Unavailable Unavailable Casey, Melyssa MD Unavailable Unavailable Casey, Melyssa MD Unavailable Unavailable Casey, Melyssa MD Unavailable Unavailable Casey, Melyssa MD Unavailable Unavailable Casey, Melyssa MD Unavailable Unavailable Casey, Melyssa MD Unavailable Unavailable Casey, Melyssa MD Unavailable Unavailable Casey, Melyssa MD Unavailable Unavailable Casey, Melyssa MD Unavailable Unavailable Casey, Melyssa MD Unavailable Unavailable Casey, Melyssa MD Unavailable Unavailable Casey, Melyssa MD Unavailable Unavailable Casey, Melyssa MD Unavailable Unavailable Casey, Melyssa MD Unavailable Unavailable Casey, Melyssa MD Unavailable Unavailable Casey, Melyssa MD Unavailable Unavailable Casey, Melyssa MD Unavailable Unavailable Casey, Melyssa MD Unavailable Unavailable Casey, Melyssa MD Unavailable Unavailable Casey, Melyssa MD Unavailable Unavailable Casey, Melyssa MD Unavailable Unavailable Casey, Melyssa MD Unavailable Unavailable Casey, Melyssa MD Unavailable Unavailable Casey, Melyssa MD Unavailable Unavailable Casey, Melyssa MD Unavailable Unavailable Casey, Melyssa MD Unavailable Unavailable Casey, Melyssa MD Unavailable Unavailable Casey, Melyssa MD Unavailable Unavailable Casey, Melyssa MD Unavailable Unavailable Casey, Melyssa MD Unavailable Unavailable Casey, Melyssa MD Unavailable Unavailable Casey, Melyssa MD Unavailable Unavailable Casey, Melyssa MD Unavailable Unavailable Bernie Zavala MD Unavailable Unavailable Bernie Zavala MD Unavailable Unavailable Bernie Zavala MD Unavailable Unavailable Bernie Zavala MD Unavailable Unavailable Bernie Zavala MD Unavailable Unavailable Bernie Zavala MD Unavailable Unavailable Bernie Zavala MD Unavailable Unavailable Bernie Zavala MD Unavailable Unavailable Bernie Zavala MD Unavailable Unavailable Bernie Zavala MD Unavailable Unavailable Bernie Zavala MD Unavailable Unavailable Bernie Zavala MD Unavailable Unavailable LynBernie lopez MD Unavailable Unavailable LyndaBernie arambula MD Unavailable Unavailable LyndaBernie arambula MD Unavailable Unavailable LyndaBernie arambula MD Unavailable Unavailable LyndaBernie arambula MD Unavailable Unavailable LyndaBernie arambula MD Unavailable Unavailable LyndaBernie arambula MD Unavailable Unavailable LyndaBernie arambula MD Unavailable Unavailable LyndaBernie arambula MD Unavailable Unavailable LyndaBernie arambula MD Unavailable Unavailable LyndaBernie arambula MD Unavailable Unavailable LyndaBernie arambula MD Unavailable Unavailable LyndaBernie arambula MD Unavailable Unavailable LyndaBernie arambula MD Unavailable Unavailable LyndaBernie arambula MD Unavailable Unavailable LyndaBernie arambula MD Unavailable Unavailable LyndaBernie arambula MD Unavailable Unavailable LyndaBernie arambula MD Unavailable Unavailable LyndaBernie arambula MD Unavailable Unavailable LyndaBernie arambula MD Unavailable Unavailable LyndaBernie arambula MD Unavailable Unavailable LyndaBernie arambula MD Unavailable Unavailable LyndaBernie arambula MD Unavailable Unavailable LyndaBernie arambula MD Unavailable Unavailable LyndaBernie arambula MD Unavailable Unavailable LynBernie lopez MD Unavailable Unavailable LyndaBernie arambula MD Unavailable Unavailable LynBernie lopez MD Unavailable Unavailable LyndaBernie arambula MD Unavailable Unavailable LyndaBernie arambula MD Unavailable Unavailable LyndaBernie arambula MD Unavailable Unavailable LynBernie lopez MD Unavailable Unavailable LynBernie lopez MD Unavailable Unavailable LynBernie lopez MD Unavailable Unavailable LynBernie lopez MD Unavailable Unavailable LynBernie lopez MD Unavailable Unavailable LyndaBernie arambula MD Unavailable Unavailable LynBernie lopez MD Unavailable Unavailable LynBernie lopez MD Unavailable Unavailable LynBernie lopez MD Unavailable Unavailable LynBernie lopez MD Unavailable Unavailable LyndaBernie arambula MD Unavailable Unavailable LyndaBernie arambula MD Unavailable Unavailable LyndaBernie arambula MD Unavailable Unavailable LyndaBernie arambula MD Unavailable Unavailable LynBernie lopez MD Unavailable Unavailable LyndaBernie arambula MD Unavailable Unavailable LynBernie lopez MD Unavailable Unavailable LyndaBernie arambula MD Unavailable Unavailable LyndaBernie arambula MD Unavailable Unavailable LyndaBernie arambula MD Unavailable Unavailable LynBernie lopez MD Unavailable Unavailable LyndaBernie arambula MD Unavailable Unavailable LynBernie lopez MD Unavailable Unavailable LynBernie lopez MD Unavailable Unavailable LyndaBernie arambula MD Unavailable Unavailable LynBernie lopez MD Unavailable Unavailable LynBernie lopez MD Unavailable Unavailable LynBernie lopez MD Unavailable Unavailable LynBernie lopez MD Unavailable Unavailable LynBernie lopez MD Unavailable Unavailable LynBernie lopez MD Unavailable Unavailable LynBernie lopez MD Unavailable Unavailable LynBernie lopez MD Unavailable Unavailable LynBernie lopez MD Unavailable Unavailable LynBernie lopez MD Unavailable Unavailable LynBernie loepz MD Unavailable Unavailable LynBernie lopez MD Unavailable Unavailable LynBernie lopez MD Unavailable Unavailable LynBernie lopez MD Unavailable Unavailable LynBernie lopez MD Unavailable Unavailable LynBernie lopez MD Unavailable Unavailable LynBernie lopez MD Unavailable Unavailable LynBernie lopez MD Unavailable Unavailable LynBernie lopez MD Unavailable Unavailable LynBernie lopez MD Unavailable Unavailable LynBernie lopez MD Unavailable Unavailable LynBernie lopez MD Unavailable Unavailable LynBernie lopez MD Unavailable Unavailable LynBernie lopez MD Unavailable Unavailable LynBernie lopez MD Unavailable Unavailable LynBernie lopez MD Unavailable Unavailable LynBernie lopez MD Unavailable Unavailable LynBernie lopez MD Unavailable Unavailable LynBernie lopez MD Unavailable Unavailable LynBernie lopez MD Unavailable Unavailable REINDLSO MD Unavailable Unavailable REINDLSO MD Unavailable Unavailable REINDLSO MD Unavailable Unavailable REINDLSO MD Unavailable Unavailable SAMIDLSO MD Unavailable Unavailable SO CHOI MD Unavailable Unavailable REINSO STAPLES MD Unavailable Unavailable REINDLSO MD Unavailable Unavailable REINSO STAPLES MD Unavailable Unavailable SO CHOI MD Unavailable Unavailable STEPH, SO BAI Unavailable Unavailable STEPH, SO BAI Unavailable Unavailable SO CHOI MD Unavailable Unavailable SO CHOI MD Unavailable Unavailable SO CHOI MD Unavailable Unavailable REINSO STAPLES MD Unavailable Unavailable REINDLSO MD Unavailable Unavailable REINDLSO MD Unavailable Unavailable REINDLSO MD Unavailable Unavailable REINDLSO MD Unavailable Unavailable REINDL, SO BAI Unavailable Unavailable REINDL, SO BAI Unavailable Unavailable REINDL, SO BAI Unavailable Unavailable REINDL, SO BAI Unavailable Unavailable REINDL, SO BAI Unavailable Unavailable REINDL, SO BAI Unavailable Unavailable REINDL, SO BAI Unavailable Unavailable REINDL, SO BAI Unavailable Unavailable REINDL, SO BAI Unavailable Unavailable REINDL, SO BAI Unavailable Unavailable REINDL, SO BAI Unavailable Unavailable REINDL, SO BAI Unavailable Unavailable REINDL, SO BAI Unavailable Unavailable REINDL, SO BAI Unavailable Unavailable REINDL, SO BAI Unavailable Unavailable REINDL, SO BAI Unavailable Unavailable REINDL, SO BAI Unavailable Unavailable REINDL, SO BAI Unavailable Unavailable REINDL, SO BAI Unavailable Unavailable REINDL, SO BAI Unavailable Unavailable REINDL, SO BAI Unavailable Unavailable REINDL, SO BAI Unavailable Unavailable Casey, Melyssa MD Unavailable Unavailable Casey, Melyssa MD Unavailable Unavailable Casey, Melyssa MD Unavailable Unavailable Casey, Melyssa MD Unavailable Unavailable Casey, Melyssa MD Unavailable Unavailable Casey, Melyssa MD Unavailable Unavailable Casey, Melyssa MD Unavailable Unavailable Casey, Melyssa MD Unavailable Unavailable Casey, Melyssa MD Unavailable Unavailable Casey, Melyssa MD Unavailable Unavailable Casey, Melyssa MD Unavailable Unavailable Casey, Melyssa MD Unavailable Unavailable Casey, Melyssa MD Unavailable Unavailable Casey, Melyssa MD Unavailable Unavailable Casey, Melyssa MD Unavailable Unavailable Casey, Melyssa MD Unavailable Unavailable Casey, Melyssa MD Unavailable Unavailable Casey, Melyssa MD Unavailable Unavailable Casey, Melyssa MD Unavailable Unavailable Casey, Melyssa MD Unavailable Unavailable Casey, Melyssa MD Unavailable Unavailable Casey, Melyssa MD Unavailable Unavailable Casey, Melyssa MD Unavailable Unavailable Casey, Melyssa MD Unavailable Unavailable Casey, Melyssa MD Unavailable Unavailable Casey, Melyssa MD Unavailable Unavailable Casey, Melyssa MD Unavailable Unavailable Casey, Melyssa MD Unavailable Unavailable Casey, Melyssa MD Unavailable Unavailable Casey, Melyssa MD Unavailable Unavailable Casey, Melyssa MD Unavailable Unavailable Casey, Melyssa MD Unavailable Unavailable Casey, Melyssa MD Unavailable Unavailable Casey, Melyssa MD Unavailable Unavailable Casey, Melyssa MD Unavailable Unavailable Casey, Melyssa MD Unavailable Unavailable Casey, Melyssa MD Unavailable Unavailable Casey, Melyssa MD Unavailable Unavailable Casey, Melyssa MD Unavailable Unavailable Casey, Melyssa MD Unavailable Unavailable Casey, Melyssa MD Unavailable Unavailable Casey, Melyssa MD Unavailable Unavailable Casey, Melyssa MD Unavailable Unavailable Casey, Melyssa MD Unavailable Unavailable Casey, Melyssa MD Unavailable Unavailable Casey, Melyssa MD Unavailable Unavailable Casey, Melyssa MD Unavailable Unavailable Casey, Melyssa MD Unavailable Unavailable Casey, Melyssa MD Unavailable Unavailable Casey, Melyssa MD Unavailable Unavailable Casey, Melyssa MD Unavailable Unavailable Casey, Melyssa MD Unavailable Unavailable Casey, Melyssa MD Unavailable Unavailable Casey, Melyssa MD Unavailable Unavailable Casey, Melyssa MD Unavailable Unavailable Casey, Melyssa MD Unavailable Unavailable Casey, Melyssa MD Unavailable Unavailable Casey, Melyssa MD Unavailable Unavailable Casey, Melyssa MD Unavailable Unavailable Casey, Melyssa MD Unavailable Unavailable Casey, Melyssa MD Unavailable Unavailable Casey, Melyssa MD Unavailable Unavailable Bernie Zavala MD Unavailable Unavailable Bernie Zavala MD Unavailable Unavailable Bernie Zavala MD Unavailable Unavailable Bernie Zavala MD Unavailable Unavailable Bernie Zavala MD Unavailable Unavailable Bernie Zavala MD Unavailable Unavailable Bernie Zavala MD Unavailable Unavailable Bernie Zavala MD Unavailable Unavailable Bernie Zavala MD Unavailable Unavailable LynBernie lopez MD Unavailable Unavailable Bernie Zavala MD Unavailable Unavailable Bernie Zavala MD Unavailable Unavailable Bernie Zavala MD Unavailable Unavailable Bernie Zavala MD Unavailable Unavailable Bernie Zavala MD Unavailable Unavailable Bernie Zavala MD Unavailable Unavailable Bernie Zavala MD Unavailable Unavailable Bernie Zavala MD Unavailable Unavailable Bernie Zavala MD Unavailable Unavailable Bernie Zavala MD Unavailable Unavailable Bernie Zavala MD Unavailable Unavailable LynBernie lopez MD Unavailable Unavailable LynBernie lopez MD Unavailable Unavailable Bernie Zavala MD Unavailable Unavailable Bernie Zavala MD Unavailable Unavailable Bernie Zavala MD Unavailable Unavailable Bernie Zavala MD Unavailable Unavailable LynBernie lopez MD Unavailable Unavailable LynBernie lopez MD Unavailable Unavailable LynBernie lopez MD Unavailable Unavailable Bernie Zavala MD Unavailable Unavailable LynBernie lopez MD Unavailable Unavailable LynBernie lopez MD Unavailable Unavailable LynBernie lopez MD Unavailable Unavailable LynBernie lopez MD Unavailable Unavailable LynBernie lopez MD Unavailable Unavailable LyndaBernie arambula MD Unavailable Unavailable LyndaBernie arambula MD Unavailable Unavailable LyndaBernie arambula MD Unavailable Unavailable LyndaBernie arambula MD Unavailable Unavailable LyndaBernie arambula MD Unavailable Unavailable LyndaBernie arambula MD Unavailable Unavailable LyndaBernie arambula MD Unavailable Unavailable LyndaBernie arambula MD Unavailable Unavailable LyndaBernie arambula MD Unavailable Unavailable LyndaBernie arambula MD Unavailable Unavailable LyndaBernie arambula MD Unavailable Unavailable LyndaBernie arambula MD Unavailable Unavailable LyndaBernie arambula MD Unavailable Unavailable LyndaBernie arambula MD Unavailable Unavailable LyndaBernie arambula MD Unavailable Unavailable LyndaBernie arambula MD Unavailable Unavailable LyndaBernie arambula MD Unavailable Unavailable LyndaBernie arambula MD Unavailable Unavailable LyndaBernie arambula MD Unavailable Unavailable LyndaBernie aarmbula MD Unavailable Unavailable LyndaBernie arambula MD Unavailable Unavailable LyndaBernie arambula MD Unavailable Unavailable LyndaBernie arambula MD Unavailable Unavailable LyndaBernie arambula MD Unavailable Unavailable LynBernie lopez MD Unavailable Unavailable LyndaBernie arambula MD Unavailable Unavailable LynBernie lopez MD Unavailable Unavailable LyndaBernie arambula MD Unavailable Unavailable LyndaBernie arambula MD Unavailable Unavailable LyndaBernie arambula MD Unavailable Unavailable LynBernie lopez MD Unavailable Unavailable LynBernie lopez MD Unavailable Unavailable LynBernie lopez MD Unavailable Unavailable LynBernie lopez MD Unavailable Unavailable LynBernie lopez MD Unavailable Unavailable LyndaBernie arambula MD Unavailable Unavailable LynBernie lopez MD Unavailable Unavailable LynBernie lopez MD Unavailable Unavailable LynBernie lopez MD Unavailable Unavailable LynBernie lopez MD Unavailable Unavailable LyndaBernie arambula MD Unavailable Unavailable LyndaBernie arabmula MD Unavailable Unavailable LyndaBernie arambula MD Unavailable Unavailable LyndaBernie arambula MD Unavailable Unavailable LynBernie lopez MD Unavailable Unavailable LyndaBernie arambula MD Unavailable Unavailable LynBernie lopez MD Unavailable Unavailable LyndaBernie arambula MD Unavailable Unavailable LyndaBernie arambula MD Unavailable Unavailable Lyndaker, L Henrik MD Unavailable Unavailable Lyndaker, L Henrik MD Unavailable Unavailable Lyndaker, L Henrik MD Unavailable Unavailable Lyndaker, L Henrik MD Unavailable Unavailable Lyndaker, L Henrik MD Unavailable Unavailable Lyndaker, L Henrik MD Unavailable Unavailable Lyndaker, L Henrik MD Unavailable Unavailable Lyndaker, L Henrik MD Unavailable Unavailable Lyndaker, L Henrik MD Unavailable Unavailable Lyndaker, L Henrik MD Unavailable Unavailable Lyndaker, L Henrki MD Unavailable Unavailable Lyndaker, L Henrik MD Unavailable Unavailable Lyndaker, L Henrik MD Unavailable Unavailable Re-disclosure Warning The records that you are about to access may contain information from federally-assisted alcohol or drug abuse programs. If such information is present, then the following federally mandated warning applies: This information has been disclosed to you from records protected by federal confidentiality rules (42 CFR part 2). The federal rules prohibit you from making any further disclosure of this information unless further disclosure is expressly permitted by the written consent of the person to whom it pertains or as otherwise permitted by 42 CFR part 2. A general authorization for the release of medical or other information is NOT sufficient for this purpose. The Federal rules restrict any use of the information to criminally investigate or prosecute any alcohol or drug abuse patient.The records that you are about to access may contain highly sensitive health information, the redisclosure of which is protected by Article 27-F of the [facility] Public Health law. If you continue you may have access to information: Regarding HIV / AIDS; Provided by facilities licensed or operated by the [facility] Office of Mental Health; or Provided by the [facility] Office for People With Developmental Disabilities. If such information is present, then the following [facility] mandated warning applies: This information has been disclosed to you from confidential records which are protected by state law. State law prohibits you from making any further disclosure of this information without the specific written consent of the person to whom it pertains, or as otherwise permitted by law. Any unauthorized further disclosure in violation of state law may result in a fine or shelter sentence or both. A general authorization for the release of medical or other information is NOT sufficient authorization for further disc losure. Encounters Encounter Providers Location Date Indications Data Source(s ) Outpatient Attender: Melyssa Peña MD 01/04/2021 02:14 :00 PM EST PERIPHERAL POLYNEUROPATHY [facility] PERIPHERAL POLYNEUROPATHY Outpatient Attender: Melyssa Peña MD [facility] 01/04/2021 11:30:00 AM EST [facility] ([facility]) Outpatient<td ID="encounterTypeDescripti onID0">followup</td><td>Henrik Zavala MD</td><td>[facility], [facility]</td><td>11/12/2020</td><td>8:29AM</td><td>9:29AM</td><td><content ID="encounterDiagnosisID0-0">Vitamin D Deficiency</content>, <content ID="encounterDiagnosisID0-1">Fibromyalgia</content>, <content ID="encounterDiagnosisID0-2">Generalized Anxiety Disorder</content>, <content ID="encounterDiagnosisID0-3">Secondary Insomnia</content>, <content ID="encounterDiagnosisID0-4">Obsessive Compulsive Personality Disorder</content> , <content ID="encounterDiagnosisID0-5">Ibs--constipation Predominant</content></td> Attender: Henrik Zavala MD [facility], [facility] 11/12/2020 08:29:00 AM EDT - 11/12/2020 09:29:00 AM ED T Ibs--constipation PredominantObsessive Compulsive Personality DisorderVitamin D DeficiencySecondary InsomniaGeneralized Anxiety DisorderFibromyalgia [place] ([facility]) Ibs--constipation Predominant Obsessive Compulsive Personality Disorde r Vitamin D Deficiency Secondary Insomnia Generalized Anxiety Disorder Fibromyalgia Outpatient [address] [facility] [address] 10/30/2020 12:00:00 AM EDT eCW1 ([facility]) [place] [address] [facility] [address] 10/14/2020 12:00:00 AM EDT eCW1 ([facility]) Outpatient Attender: SO Aparicio/Kit/Gerald/Sami staples 10/12/2020 02:15:00 PM EDT [facility] ([facility]) [place] [address] [facility] [address] 10/08/2020 12:00:00 AM EDT eCW1 ([facility]) [place] [address] [facility] [address] 09/30/2020 12:00:00 AM EDT eCW1 ([facility]) Out[place] [address] [facility] [address] 09/18/2020 12:00:00 AM EDT eCW1 ([facility]) Outpatient<td ID="encounterTypeDescripti onID2">ANNUAL PE-followup exam</td><td>Henrik Zavala MD</td><td>[facility], [facility]</td><td>08/05/2020</td><td>12:53PM</td><td>1:35PM</td><td><content ID="encounterDiagnosisID2-0">Generalized Anxiety Disorder</content>, <content ID="encounterDiagnosisID2-1">Routine History and Physical Adult (18 - 64 Yrs)</content></td> Attender: Henrik Zavala MD [facility], [facility] 08/05/2020 12:53:00 PM EDT - 08/05/2020 01:35:00 PM ED T Routine History and Physical Adult (18 - 64 Yrs)Routine History and Physical Adult (18 - 64 Yrs)Generalized Anxiety DisorderGeneralized Anxiety Disorder [place] ([facility]) Routine History and Physical Adult (18 - 64 Yrs) Routine History and Physical Adult (18 - 64 Yrs) Generalized Anxiety Disorder Generalized Anxiety Disorder <td ID="encounterTypeDescriptionID1">[Pa tient Encounter]</td><td>Henrik Zavala MD</td><td></td><td>10/08/2020</td><td>08/05/2020 10:12AM</td><td>08/05/2020 11:59PM</td><td></td>Outpatient Attender: Henrik Zavala MD 08/05/2020 10:12:00 AM EDT - 08/05/2020 11:59:00 PM EDT [place] ([facility]) Unknown [address] [facility] [address] 07/27/2020 12:00:00 AM EDT eCW1 ([facility]) <td ID="encounterTypeDescriptionID4">[Pa tient Encounter]</td><td>Henrik Zavala MD</td><td></td><td>06/11/2020</td><td>04/23/2020 5:13PM</td><td>04/23/2020 11:59PM</td><td></td>Outpatient Attender: Henrik Zavala MD 04/23/2020 05:13:00 PM EST - 04/23/2020 11:59:00 PM EST [place] ([facility]) <td ID="encounterTypeDescriptionID5">[Pa tient Encounter]</td><td>Henrik Zavala MD</td><td></td><td>04/24/2020</td><td>04/23/2020 4:56PM</td><td>04/23/2020 11:59PM</td><td></td>Outpatient Attender: Henrik Zavala MD 04/23/2020 04:56:00 PM EST - 04/23/2020 11:59:00 PM EST [place] ([facility]) Outpatient Attender: Henrik Zavala MD 04/23/2020 02:47:0 0 PM EST M79.7 [facility] M79.7 Outpatient<td ID="encounterTypeDescripti onID6">sick visit</td><td>Henrik Zavala MD</td><td>[facility], [facility]</td><td>04/23/2020</td><td>1:53PM</td><td>2:55PM</td><td><content ID="encounterDiagnosisID6-0">Fibromyalgia</content>, <content ID="encounterDiagnosisID6-1">Secondary Insomnia</content></td> Attender: Henrik Zavala MD [facility], [facility] 04/23/2020 01:53:00 P M EST - 04/23/2020 02:55:50 PM EST Secondary InsomniaFibromyalgiaSecondary InsomniaFibromyalgiaSecondary InsomniaFibromyalgia [place] ([facility]) Secondary Insomnia Fibromyalgia Secondary Insomnia Fibromyalgia Secondary Insomnia Fibromyalgia Outpatient<td ID="encounterTypeDescripti onID3">[Patient Encounter]</td><td>Henrik Zavala MD</td><td></td><td>07/06/2020</td><td>04/23/2020 7:39AM</td><td>04/23/2020 11:59PM</td><td></td> Attender: Henrik Zavala MD 07:39:00 AM EST - 04/23/2020 11:59:00 PM EST [place] ([facility]) Outpatient<td ID="encounterTypeDescripti onID7">[Patient Encounter]</td><td>Henrik Zavala MD</td><td></td><td>01/22/2020</td><td>12/07/2019 4:34PM</td><td>12/07/2019 11:59PM</td><td></td> Attender: Henrik Zavala MD 0 04:34:00 PM EDT - 12/07/2019 11:59:00 PM EDT [place] ([facility]) <td ID="encounterTypeDescriptionID8">[facility]</td><td>Henrik Zavala MD</td><td>[facility]</td><td>12/07/2019</td><td>10:23AM</td><td>10:58AM</td><td><content ID="encounterDiagnosisID8-0">Generalized Anxiety Disorder</content>, <content ID="encounterDiagnosisID8-1">Secondary Insomnia</content></td>Outpatient Attender: Henrik Zavala MD [facility], [facility] 12/07/2019 10:23:00 AM EDT - 12/07/2019 10:58:00 AM EDT Secondary InsomniaGeneralized Anxiety DisorderSecondary InsomniaGeneralized Anxiety DisorderSecondary InsomniaGeneralized Anxiety DisorderSecondary InsomniaGeneralized Anxiety Disorder [place] ([facility]) Secondary Insomnia Generalized Anxiety Disorder Secondary Insomnia Generalized Anxiety Disorder Secondary Insomnia Generalized Anxiety Disorder Secondary Insomnia Generalized Anxiety Disorder Immunizations Vaccine Date Status Description Data Source(s) COVID-19 dose #2 given elsewhere Unspecified 06/25/2020 03:1 3:00 PM EDT completed eCW1 ([facility]) Moderna COVID-19 vaccine 06/25/2020 12:12:00 PM EDT completed <td ID="Qcfpsmeveclxx-Rbzqtawfouk-DC5">Moderna COVID-19 vaccine</td><td ID="ImmunizationDose-2">2</td><td>06/25/2020</td><td ID="Icnjezkfjrgmy-HoptvBprr-EF5"></td><td></td><td ID="Bootjsypmuqdx-Nlujeb-RO2">Complete (Reported)</td><td>Patient</td><td ID="Ezxmexcdgsdeo-Tmexh-Hdpu-Comment-ID2"></td> [place] ([facility]) COVID-19 VACCINE Moderna 06/25/2020 12:00:00 AM EDT completed NYSIIS Vaccine Series Complete: YESThis Data wa s Submitted to [facility] Via NYSIIS. COVID-19 dose #1 given elsewhere Unspecified 05/28/2020 03:1 2:00 PM EDT completed eCW1 ([facility]) Moderna COVID-19 vaccine 05/28/2020 12:12:00 PM EDT completed <td ID="Harhmgujtugly-Ojrklolielc-LR8">Moderna COVID-19 vaccine</td><td ID="ImmunizationDose-1">1</td><td>05/28/2020</td><td ID="Yadmgsvsdtovq-UtgkhFooq-LR7"></td><td></td><td ID="Atsxilotuvvxm-Fvlosi-DX1">Complete (Reported)</td><td>Patient</td><td ID="Asylwxkkzpqgr-Luuts-Cdvm-Comment-ID1"></td> [place] ([facility]) COVID-19 VACCINE Moderna 05/28/2020 12:00:00 AM EDT completed NYSIIS Vaccine Series Complete: NOThis Data was Submitted to [facility] Via BalluunSIIS. IIV3. This is one of two codes replacing CVX 15, which is being retired. 12/07/2019 11:03:00 AM EDT completed <td ID="Ignfuwaffxdxs-Jmyzshcruyn-ZW4">Influenza, seasonal, injectable</td><td ID="ImmunizationDose-0">1</td><td>12/07/2019</td><td ID="Xywsnzswarcxw-YlkpgWraz-QV2">Left Deltoid</td><td></td><td ID="Stssdglanniyr-Nojxyo-LQ5">Complete (Administered)</td><td>[facility]</td><td ID="Swdjkurygliha-Xdcie-Xwzj-Comment-ID0"></td> [place] ([facility]) Medications Medication Brand Name Start Date Product Form Dose Route Admi nistrative Instructions Pharmacy Instructions Status Indications Reaction Description Data Source(s) Vitamin B 12 1 MG/ML Injectable Solution Cyanocobalamin 01/04/2021 12:00:00 AM EST active [facility] ([facility]) zonisamide 50 MG Oral Capsule Zonisamide 01/04/2021 12:00:00 AM EST ORAL active [facility] ([facility]) Vitamin D (Ergocalciferol) 1.25 MG (20981 UT) Oral Cap mickey Vitamin D (Ergocalciferol) 1.25 MG (37514 UT) Oral Capsule 11/06/2020 12:00:00 AM EDT 1 active Vitamin D (Ergocalci ferol) [place] ([facility]) Zolpidem tartrate 10 MG Oral Tablet Zolpidem Tartrate 10 MG Oral Tablet Zolpidem Tartrate 10 MG Oral Tablet 10/16/2020 12:00:00 AM EDT active zolpidem tartrate 10 MG Oral Tablet [place] ([facility]) Clonazepam 1 MG Oral Tablet clonazePAM 1 MG Oral Table t clonazePAM 1 MG Oral Tablet 10/13/2020 12:00:00 AM EDT active clonazepam 1 MG Oral Tablet [place] ([facility]) Nortriptyline 25 MG Oral Capsule Nortriptyline HCl 25 MG Oral Capsule Nortriptyline HCl 25 MG Oral Capsule 10/13/2020 12:00:00 AM EDT 1 active nortriptyline 25 MG Oral Capsule [place] ([facility]) Lactulose 667 MG/ML Oral Solution Lactulose 10/12/2020 12:00:00 AM EDT ORAL active [facility] ([facility], ) magnesium citrate 58.2 MG/ML Oral Solution Magnesium Citrate 10/12/2020 12:00:00 AM EDT active [facility] ([facility], ) POLYETHYLENE GLYCOL 3350 142 MG/ML Oral Solution [Miralax] M iralax 10/12/2020 12:00:00 AM EDT active M EDENT ([facility], ) Ergocalciferol 99544 UNT Oral Capsule Vi tamin D (Ergocalciferol) 1.25 MG (86310 UT) Vitamin D (Ergocalciferol) 1.25 MG (11877 UT) 10/08/2020 12:00:0 0 AM EDT 1.0 {capsule} active Vitamin D (Ergocal ciferol) 1.25 MG (94434 UT) eCW1 ([facility]) 8 HR Acetaminophen 650 MG Extended Release Oral Tablet [Tyle nol] Tylenol 8 Hour 10/08/2020 12:00:00 AM EDT active [facility] ([facility] ) Ergocalciferol 07633 UNT Oral Capsule Vi tamin D (Ergocalciferol) 1.25 MG (57758 UT) Vitamin D (Ergocalciferol) 1.25 MG (32759 UT) 10/08/2020 12:00:0 0 AM EDT 1.0 {capsule} active Vitamin D (Ergocal ciferol) 1.25 MG (73920 UT) [facility] ([facility]) Ergocalciferol 63014 UNT Oral Capsule Vi tamin D (Ergocalciferol) 1.25 MG (92684 UT) Vitamin D (Ergocalciferol) 1.25 MG (90898 UT) 10/08/2020 12:00:0 0 AM EDT 1.0 {capsule} active Vitamin D (Ergocal ciferol) 1.25 MG (65154 UT) [facility] ([facility]) Sertraline 100 MG Oral Tablet Sertraline HCl 100 MG Or al Tablet Sertraline HCl 100 MG Oral Tablet 08/05/2020 12:00:00 AM EDT 1 active sertraline 100 MG Oral Tablet [facility]) Sertraline 50 MG Oral Tablet Sertraline HCl 50 MG Oral Tablet Sertraline HCl 50 MG Oral Tablet 07/31/2020 12:00:00 AM EDT 1 abo rted sertraline 50 MG Oral Tablet [facility]) Clonazepam 1 MG Oral Tablet clonazePAM 1 MG Oral Table t clonazePAM 1 MG Oral Tablet 06/11/2020 12:00:00 AM EDT aborted clonazepam 1 MG Oral Tablet [place] ([facility]) Zolpidem tartrate 10 MG Oral Tablet Zolpidem Tartrate 10 MG Oral Tablet Zolpidem Tartrate 10 MG Oral Tablet 05/07/2020 12:00:00 AM EST aborted zolpidem tartrate 10 MG Oral Tablet [facility]) Clonazepam 1 MG Oral Tablet clonazePAM 1 MG Oral Table t clonazePAM 1 MG Oral Tablet 05/01/2020 12:00:00 AM EST aborted clonazepam 1 MG Oral Tablet [place] ([facility]) Suvorexant 20 MG Oral Tablet [Belsomra] Belsomra 20 MG Oral Tablet Belsomra 20 MG Oral Tablet 05/01/2020 12:00:00 AM EST 1 abo rted suvorexant 20 MG Oral Tablet [Belsomra] [place] ([facility]) Suvorexant 20 MG Oral Tablet [Belsomra] Belsomra 20 MG Oral Tablet Belsomra 20 MG Oral Tablet 04/24/2020 12:00:00 AM EST 1 abo rted suvorexant 20 MG Oral Tablet [Belsomra] [place] ([facility]) Clonazepam 1 MG Oral Tablet clonazePAM 1 MG Oral Table t clonazePAM 1 MG Oral Tablet 04/01/2020 12:00:00 AM EST aborted clonazepam 1 MG Oral Tablet [place] ([facility]) Sertraline 50 MG Oral Tablet Sertraline HCl 50 MG Oral Tablet Sertraline HCl 50 MG Oral Tablet 03/23/2020 12:00:00 AM EST 1 abo rted sertraline 50 MG Oral Tablet [place] ([facility]) Clonazepam 1 MG Oral Tablet clonazePAM 1 MG Oral Table t clonazePAM 1 MG Oral Tablet 02/27/2020 12:00:00 AM EST aborted clonazepam 1 MG Oral Tablet [place] ([facility]) Sertraline 50 MG Oral Tablet Sertraline HCl 50 MG Oral Tablet Sertraline HCl 50 MG Oral Tablet 01/27/2020 12:00:00 AM EST 1 abo rted sertraline 50 MG Oral Tablet [place] ([facility]) Clonazepam 1 MG Oral Tablet clonazePAM 1 MG Oral Table t clonazePAM 1 MG Oral Tablet 01/22/2020 12:00:00 AM EST aborted clonazepam 1 MG Oral Tablet [place] ([facility]) ciclopirox 7.7 MG/ML Topical Cream Ciclopirox Olamine 0.77% External Cream Ciclopirox Olamine 0.77% External Cream 12/10/2019 12:00:00 AM EDT active ciclopirox 7.7 MG/ML Topical Cre am [place] ([facility]) Nortriptyline 25 MG Oral Capsule Nortriptyline HCl 25 MG Oral Capsule Nortriptyline HCl 25 MG Oral Capsule 2019 12:00:00 AM EDT 1 aborted nortriptyline 25 MG Oral Capsule [place] ([facility]) Clonazepam 1 MG Oral Tablet clonazePAM 1 MG Oral Table t clonazePAM 1 MG Oral Tablet 09/02/2019 12:00:00 AM EDT 1 aborted clonazepam 1 MG Oral Tablet [place] ([facility]) Magnesium Oxide 200 MG Oral Tablet Magnesium Oxide 200 MG Or al Tablet 08/05/2019 12:00:00 AM EDT 1 completed magn esium oxide 200 MG Oral Tablet [place] ([facility]) Sertraline 50 MG Oral Tablet Sertraline HCl 50 MG Oral Tablet Sertraline HCl 50 MG Oral Tablet 07/28/2019 12:00:00 AM EDT 1 abo rted sertraline 50 MG Oral Tablet [place] ([facility]) Insurance Providers Payer name Policy type / Coverage type Policy ID Covered democrat ID Covered democrat's relationship to nicole Policy Nicole Plan Information [facility] [id number] [facility] [id number] [place] [id number] SP [id number] [facility] WC [id number] S [id number] [place] [employer] WC [id number] S 2 [id number] [facility] [id number] S [id number] Problems, Conditions, and Diagnoses Code Display Name Description Problem Type Effective Dates Data Source(s) 268.9 Vitamin D Deficiency Vitamin D Deficiency Problem 11/13/2020 12:00:00 AM EDT [place] ([facility]) 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 11/13/2020 12:00:00 AM EDT [place] ([facility]) 564.1 Ibs--constipation Predominant Ibs--constipation Predom inant Problem 11/13/2020 12:00:00 AM EDT [place] ([facility]) E83.40 [id number] Magnesium disorder Problem 10/30/2020 12:00: 00 AM EDT eCW1 ([facility]) [id number] Chronic neck pain Chronic neck pain Problem 09/27 12:00:00 AM EDT [facility] ([facility] ) [id number] Carpal tunnel syndrome Carpal tunnel syndrome Problem 10/08/2020 12:00:00 AM EDT [facility] ([facility] ) [id number] Numbness of hand Numbness of hand Problem 10/08/2020 12 :00:00 AM EDT [facility] ([facility]) 68416304 Hand pain Hand pain Problem 10/08/2020 12:00:00 AM ED T [place] ([facility] ) E55.9 [id number] Vitamin D deficiency Problem 10/08/2020 12:0 0:00 AM EDT eC1 ([facility]) R53.82 98135639 Chronic fatigue Problem 09/18/2020 12:00:00 AM EDT eC ([facility]) R20.2 25989379 Paresthesia Problem 09/18/2020 12:00:00 AM E DT eC ([facility]) 05686 Cystitis Chronic Interstitial Cystitis Chronic Interst itial Problem 08/05/2020 01:14:00 PM EDT [place] ([facility]) 88337 Cystitis Chronic Interstitial Cystitis Chronic Interst itial Problem 08/05/2020 01:14:00 PM EDT [place] ([facility]) Surgeries/Procedures Procedure Description Date Indications Data Source(s) OFFICE OUTPATIENT VISIT 25 MINUTES 01/04/2021 12:00:00 AM EST [place] ([facility] ) Needle electromyography, each extremity, with related paraspinal areas, when performed, done with nerve conduction, amplitude and latency/velocity study; complete, five or more muscles studied, innervated by three or more nerves or four or more spinal levels (list separately in addition to the code for primary procedure). 10/12/2020 12:00:00 AM EDT [place] ([facility], ) Needle electromyography, each extremity, with related paraspinal areas, when performed, done with nerve conduction, amplitude and latency/velocity study; complete, five or more muscles studied, innervated by three or more nerves or four or more spinal levels (list separately in addition to the code for primary procedure). 10/12/2020 12:00:00 AM EDT [place] ([facility] ) 34213 Nerve conduction studies 13 or more studies NEW 201210/12/2020 12:00:00 AM EDT [place] ([facility] ) OFFICE OUTPATIENT NEW 45 MINUTES 10/12/2020 12:00:00 A M EDT [place] ([facility], ) Needle electromyography, each extremity, with related paraspinal areas, when performed, done with nerve conduction, amplitude and latency/velocity study; complete, five or more muscles studied, innervated by three or more nerves or four or more spinal levels (list separately in addition to the code for primary procedure). 10/08/2020 12:00:00 AM EDT [facility] T ([facility], ) Needle electromyography, each extremity, with related paraspinal areas, when performed, done with nerve conduction, amplitude and latency/velocity study; complete, five or more muscles studied, innervated by three or more nerves or four or more spinal levels (list separately in addition to the code for primary procedure). 10/08/2020 12:00:00 AM EDT MED[facility] T ([facility]) Needle Electromyography Non Extremity Done With Nerve Conduc tion 10/08/2020 12:00:00 AM EDT [facility] ([facility]) Needle Electromyography Non Extremity Done With Nerve Conduc tion 10/08/2020 12:00:00 AM EDT [facility] ([facility]) 75747 Nerve conduction studies 13 or more studies NEW 201210/08/2020 12:00:00 AM EDT [facility] ([facility]) IMADM PRQ ID SUBQ/IM NJXS 1 VACCINE ADMINISTRATION 1-IMMUNIZ ATION(adult) 12/07/2019 12:00:00 AM EDT [place] ([facility]) Flucelvax multidose PRIVATE(ages 4 & older) Flucelvax multidose PRIVATE(ages 4 & older) 12/07/2019 12:00:00 AM EDT [place] ([facility]) Results ID Date Data Source [id number] 01/04/2021 03:16:00 PM EST [facility] Name Value Range Interpretation Code Description Data Leighann rce(s) Supporting Document(s) Hemoglobin A1c [Mass/volume] in Blood 5.0 % 3.8-5.6 N [facility] The following ranges may be u sed for interpretation of results: HGBA1C degree of glucose control: Greater than 8%: Action Suggested * Less than 7%: Goal of Diabetic Therapy Less than 5.6%: NormalFactors such as duration of diabetes, adherence to therapyand the age of the patient should also be considered inassessing the degree of blood glucose control.* High risk of developing group home complications such asretinopathy, nephropathy, neuropathy, cardiopathy, etc. Some danger of hypoglycemic reaction in Type I diabetics.Some glucose intolerant individuals and "Sub Clinical"diabetics may demonstrate HGBA1C levels in this area. Glucose mean value [Moles/volume] in Blood Estimated f rom glycated hemoglobin 97 mg/dL [facility] An A1C of 7% - the goal of diabetic ther apy - is equivalentto an EAG of 154 mg/dl. ID Date Data Source [id number] 01/04/2021 03:40:00 PM [facility] Name Value Range Interpretation Code Description Data Leighann rce(s) Supporting Document(s) Folate [Mass/volume] in Serum or Plasma 6.5 ng/mL [facility] FOLATE INTERPRETATION NORMAL: GREATER THAN 5.38 INDETERMINATE: 3.38 - 5.38 DEFICIENT: LESS THAN 3.37 ID Date Data Source [id number] 01/10/2021 01:41:00 PM [facility] Name Value Range Interpretation Code Description Data Leighann rce(s) Supporting Document(s) Thiamine [Mass/volume] in Blood 84 nmol/L 78-185 [facility] Vitamin supplementation within 24 hours prior toblood draw may affect the accuracy of the results.This test was developed and its analytical performancecharacteristics have been determined by [employer] [place], [place]. It hasnot been cleared or approved by the U.S. Food and DrugAdministration. This assay has been validated pursuantto the CLIA regulations and is used for clinicalpurposes.THIS TEST WAS PERFORMED AT:[employer] [facility] [place], [place] - [address] BONNER MD,PHD ID Date Data Source [id number] 01/04/2021 03:40:00 PM [facility] Name Value Range Interpretation Code Description Data Leighann rce(s) Supporting Document(s) Thyroxine (T4) free [Mass/volume] in Serum or Plasma 1.14 ng/dL 0.89- 1.76 N [facility] ID Date Data Source [id number] 01/10/2021 01:41:00 PM [facility] Name Value Range Interpretation Code Description Data Leighann rce(s) Supporting Document(s) Lupus anticoagulant two screening tests W Reflex [interpretation] [facility] A Lupus Anticoagulant is not detected.Re ference Range: Not DetectedFor additional information, please refer [email or web address]/faq/LPJ09x5(This link is being provided for informational/educational purposes only.)This interpretation is based on the following testresults. aPTT.lupus sensitive (LA screen) 33 sec <=40 [facility] dRVVT (LA screen) 34 sec <=45 [facility] Mixing studies [Interpretation] in Platelet poor plasma Narr ative Not Indicated [facility] THIS TEST WAS PERFORMED AT:[employer] [address] [address]HZDUHMHCARRINGTON BONNER MD,PHD HEX PHASE PHOSP [facility] ID Date Data Source [id number] 01/04/2021 03:40:00 PM [facility] Name Value Range Interpretation Code Description Data Leighann rce(s) Supporting Document(s) Thyrotropin [Units/volume] in Serum or Plasma by Detec tion limit <= 0.005 mIU/L 0.69 u[iU]/mL 0.35-5.50 [facility] ID Date Data Source [id number] 01/10/2021 01:41:00 PM [facility] Name Value Range Interpretation Code Description Data Leighann rce(s) Supporting Document(s) Pyridoxine [Mass/volume] in Serum or Plasma 2.9 ng/mL 2.1-21.7 [facility] Vitamin supplementation within 24 hours prior toblood draw may affect the accuracy of the results.This test was developed and its analytical performancecharacteristics have been determined by [employer] [place], [place]. It hasnot been cleared or approved by the U.S. Food and DrugAdministration. This assay has been validated pursuantto the CLIA regulations and is used for clinicalpurposes.THIS TEST WAS PERFORMED AT:[employer]/[facility] [place], [place] [address]CARRINGTON BONNER MD,PHD ID Date Data Source [id number] 01/10/2021 01:41:00 PM [facility] Name Value Range Interpretation Code Description Data Leighann rce(s) Supporting Document(s) Alpha tocopherol [Mass/volume] in Serum or Plasma 10.5 mg/L 5.7-19.9 [facility] Levels of alpha-tocopherol <5 mg/L are c onsistentwith Vitamin E deficiency in adults. Beta+gamma tocopherol [Mass/volume] in Serum or Plasma <1.0 mg/L <=4 .3 [facility] Vitamin supplementation within 24 hours prior toblood draw may affect the accuracy of the results.This test was developed and its analytical performancecharacteristics have been determined by [employer] [place], [place]. It hasnot been cleared or approved by the U.S. Food and DrugAdministration. This assay has been validated pursuantto the CLIA regulations and is used for clinicalpurposes.THIS TEST WAS PERFORMED AT:[employer] [place], [place] [address]CARRINGTON BONNER MD,PHD ID Date Data Source [id number] 01/10/2021 01:41:00 PM [facility] Name Value Range Interpretation Code Description Data Leighann rce(s) Supporting Document(s) Albumin [Mass/volume] in Unspecified specimen 4.4 g/dL 3.8-4.8 [facility] Alpha 1 globulin [Mass/volume] in Serum or Plasma by Electro phoresis 0.3 g/dL 0.2-0.3 [facility] Alpha 2 globulin [Mass/volume] in Serum or Plasma by Electro phoresis 0.9 g/dL 0.5-0.9 [facility] Laboratory studies (set) 0.4 g/dL 0.4-0.6 [facility] Gamma globulin [Mass/volume] in Serum or Plasma by Electroph oresis 0.9 g/dL 0.8-1.7 [facility] BETA 2 GLOBULIN 0.3 g/dL 0.2-0.5 [facility] Protein Fractions [Interpretation] in Serum or Plasma by Electropho resis [facility] Normal Electrophoretic PatternTHIS TEST WAS PERFORMED AT:[facility] [address]ILKZIX MERATI,MD PROTEIN, TOTAL 7.2 g/dL 6.1-8.1 [facility] THIS TEST WAS PERFORMED AT:[facility]-[address] [address]SOWATH MERATI,MD ID Date Data Source [id number] 01/04/2021 02:30:00 PM EST [facility] ([facility] ) Name Value Range Interpretation Code Description Data Leighann rce(s) Supporting Document(s) Thiamine [Mass/volume] in Blood 84 [facility] 78-185 [facility] ([facility] ) PERIPHERAL POLYNEUROPATHY Alpha tocopherol [Mass/volume] in Serum or Plasma Laboratory test res ult [facility] ([facility] ) PERIPHERAL POLYNEUROPATHY ID Date Data Source [id number] 01/04/2021 02:30:00 PM EST [facility] ([facility] ) Name Value Range Interpretation Code Description Data Leighann rce(s) Supporting Document(s) Alpha tocopherol [Mass/volume] in Serum or Plasma 10.5 mg/L 5.7-19.9 [facility] ([facility] ) PERIPHERAL POLYNEUROPATHY Beta+gamma tocopherol [Mass/volume] in Serum or Plasma Laborator y test result [facility] ([facility] ) PERIPHERAL POLYNEUROPATHY ID Date Data Source [id number] 01/04/2021 02:30:00 PM EST [facility] ([facility] ) Name Value Range Interpretation Code Description Data Leighann rce(s) Supporting Document(s) Pyridoxine [Mass/volume] in Serum or Plasma 2.9 ng/mL 2.1-21.7 [facility] ([facility] ) PERIPHERAL POLYNEUROPATHY ID Date Data Source [id number] 01/04/2021 02:30:00 PM EST [facility] ([facility] ) Name Value Range Interpretation Code Description Data Leighann rce(s) Supporting Document(s) Lupus anticoagulant two screening tests W Reflex [inte rpretation] Laboratory test result [facility] ([facility] ) PERIPHERAL POLYNEUROPATHY Laboratory test finding (navigational concept) Laboratory test result [facility] ([facility]) PERIPHERAL POLYNEUROPATHY aPTT.lupus sensitive (LA screen) 33 [facility] ([facility]) PERIPHERAL POLYNEUROPATHY dRVVT (LA screen) 34 [facility] ([facility]) PERIPHERAL POLYNEUROPATHY Mixing studies [Interpretation] in Platelet poor plasm a Narrative Laboratory test result [facility] ([facility], ) PERIPHERAL POLYNEUROPATHY ID Date Data Source [id number] 01/04/2021 02:30:00 PM EST [facility] ([facility]) Name Value Range Interpretation Code Description Data Leighann rce(s) Supporting Document(s) Protein, Total 7.2 g/dL 6.1-8.1 [facility] ([facility]) PERIPHERAL POLYNEUROPATHY Albumin [Mass/volume] in Unspecified specimen 4.4 g/dL 3.8-4.8 [facility] ([facility]) PERIPHERAL POLYNEUROPATHY Alpha 1 globulin [Mass/volume] in Serum or Plasma by Electro phoresis 0.3 g/dL 0.2-0.3 [facility] PERIPHERAL POLYNEUROPATHY Alpha 2 globulin [Mass/volume] in Serum or Plasma by Electro phoresis 0.9 g/dL 0.5-0.9 [facility] PERIPHERAL POLYNEUROPATHY Laboratory studies (set) 0.4 g/dL 0.4-0.6 [facility] PERIPHERAL POLYNEUROPATHY Laboratory test finding (navigational concept) 0.3 g/dL 0.2-0.5 [facility] PERIPHERAL POLYNEUROPATHY Gamma globulin [Mass/volume] in Serum or Plasma by Electroph oresis 0.9 g/dL 0.8-1.7 [facility] ([facility]) PERIPHERAL POLYNEUROPATHY Protein Fractions [Interpretation] in Serum or Plasma by Electrophoresis Laboratory test result [facility] ([facility]) PERIPHERAL POLYNEUROPATHY ID Date Data Source [id number] 01/04/2021 02:30:00 PM EST [facility] ([facility]) Name Value Range Interpretation Code Description Data Leighann rce(s) Supporting Document(s) Folate [Mass/volume] in Serum or Plasma 6.5 ng/mL [facility] ([facility]) PERIPHERAL POLYNEUROPATHY Thyrotropin [Units/volume] in Serum or Plasma 0.69 u[iU]/mL 0.35-5.50 [facility] ([facility]) PERIPHERAL POLYNEUROPATHY Thyroxine (T4) free [Mass/volume] in Serum or Plasma 1.14 ng/dL 0.89- 1.76 [facility] ([facility]) PERIPHERAL POLYNEUROPATHY ID Date Data Source [id number] 01/04/2021 02:30:00 PM EST [facility] ([facility]) Name Value Range Interpretation Code Description Data Leighann rce(s) Supporting Document(s) Hemoglobin A1c [Mass/volume] in Blood 5.0 % 3.8-5.6 [facility] ([facility]) PERIPHERAL POLYNEUROPATHY Glucose mean value [Moles/volume] in Blood Estimated f rom glycated hemoglobin 97 mg/dL [facility] PERIPHERAL POLYNEUROPATHY ID Date Data Source [id number] 12/18/2020 12:23:00 PM EDT [facility] Name Value Range Interpretation Code Description Data Leighann rce(s) Supporting Document(s) SARS-CoV-2 (COVID-19) RNA [Presence] in Respiratory specimen by SEGUNDO with probe detection Not Detected [facility] This lab was ordered by [facility] and reported by [employer]. ID Date Data Source [id number] 12/18/2020 12:00:00 AM EDT [facility] Name Value Range Interpretation Code Description Data Leighann rce(s) Supporting Document(s) SARS-CoV2 Rapid Antigen Negative [facility] This lab was reported by [facility]. ID Date Data Source [id number] 10/12/2020 03:35:00 PM EDT [facility] Name Value Range Interpretation Code Description Data Leighann rce(s) Supporting Document(s) Tissue transglutaminase IgA Ab [Units/volume] in Serum Labor atory test result 0-3 Normal (applies to non-numeric results) [facility]) Negative 0 - 3 Weak Positive 4 - 10 Positive >10 . Tissue Transglutaminase (tTG) has been identified as the endomysial antigen. Studies have demonstr- ated that endomysial IgA antibodies have over 99% specificity for gluten sensitive enteropathy. Performed at: RN - [facility] [address] [id number] Can Closing Machine Tender: Miladys Mckeon MD, Phone: [phone] IgA [Mass/volume] in Serum or Plasma 111.0 mg/dL 70-400 Normal (applies to non- numeric results) [facility], ) 11/09/20 (MonNov 09) 06:38 PM SO GRANT neg ID Date Data Source VICK TITER & PATTERN 09/18/2020 12:00:00 AM EDT eCW1 ([facility]) Name Value Range Interpretation Code Description Data Leighann rce(s) Supporting Document(s) Negative . VICK (HEP2) eCW1 ([facility]) ID Date Data Source VITAMIN B12 LEVEL 09/18/2020 12:00:00 AM EDT eCW1 ([facility]) Name Value Range Interpretation Code Description Data Leighann rce(s) Supporting Document(s) [id number] VITAMIN B12 LEVEL eCW1 ([facility]) ID Date Data Source PHOSPHOROUS LEVEL 09/18/2020 12:00:00 AM EDT eCW1 ([facility]) Name Value Range Interpretation Code Description Data Leighann rce(s) Supporting Document(s) 3.5 2.5-4.9 PHOSPHORUS LEVEL eCW1 ([facility]) ID Date Data Source IRON (FE) 09/18/2020 12:00:00 AM EDT eCW1 ([facility]) Name Value Range Interpretation Code Description Data Leighann rce(s) Supporting Document(s) 111 [id number] IRON (FE) eCW1 ([facility]) ID Date Data Source ERYTHROCYTE SEDIMENTATION RATE 09/18/2020 12:00:00 AM EDT eC W1 ([facility]) Name Value Range Interpretation Code Description Data Leighann rce(s) Supporting Document(s) 2 0-20 ERYTHROCYTE SEDIMENTATION RATE eCW1 ([facility]) ID Date Data Source C REACTIVE PROTEIN QUANTITATIV (At [facility]) 09/18/2020 12:00 :00 AM EDT eCW1 ([facility]) Name Value Range Interpretation Code Description Data Leighann rce(s) Supporting Document(s) < 0.30 0.00-0.30 C REACTIVE PROTEIN QUANTI TATIV eCW1 ([facility]) ID Date Data Source CPK CREATINE PHOSPHOKINASE 09/18/2020 12:00:00 AM EDT eCW1 ( [facility]) Name Value Range Interpretation Code Description Data Leighann rce(s) Supporting Document(s) 50 26-192 CPK CREATINE PHOSPHOKINASE eCW 1 ([facility]) ID Date Data Source [id number] 04/23/2020 03:57:00 PM [facility] <0.90 Index Interpretation ----- < 0.90 Negative [...] when erythemamigrans is apparent.THIS TEST WAS PERFORMED AT:[facility] [id number] CHO Reportable Result Name Value Range Interpretation Code Description Data Leighann rce(s) Supporting Document(s) Leukocytes [#/volume] in Blood by Automated count 9.0 10*3/uL 4.45-10 .71 N [facility] Erythrocytes [#/volume] in Blood by Automated count 4.94 10*6/uL 4.20 -5.40 [facility] Hemoglobin [Moles/volume] in Blood 14.9 g/dL 10.7-15.4 [facility] Hematocrit [Volume Fraction] of Blood by Automated count 45.8 % 3 7-47 N [facility] Erythrocyte mean corpuscular volume [Ent itic volume] in Cord blood by Automated count 92.7 fL 80-96 N [facility] ital Erythrocyte mean corpuscular hemoglobin [Entitic mass] by Automated count 30.2 pg 27-31 N [facility] l Erythrocyte mean corpuscular hemoglobin concentration [Mass/volume] in Cord blood 32.5 g/dL 33-37 Below low normal [facility] Erythrocyte distribution width [Entitic volume] by Automated count 13 % 11-15 N [facility] Platelets [#/volume] in Blood by Automated count 314 10*3/uL 130-472 N [facility] Platelet mean volume [Entitic volume] in Blood 9.9 fL 9.1-13.1 N [facility] Neutrophils/100 leukocytes in Blood by Automated count 57.3 % 41- 77 N [facility] Neutrophils [#/volume] in Blood by Automated count 5.1 U 1.7-7.6 N [facility] Lymphocytes/100 leukocytes in Blood by Automated count 34.9 % 14- 46 N [facility] Lymphocytes [#/volume] in Blood by Automated count 3.1 U 0.6-4.6 N [facility] Monocytes/100 leukocytes in Blood by Automated count 4.2 % 4-12 N [facility] Monocytes [#/volume] in Blood by Automated count 0.4 U 0.2-1.2 N [facility] Eosinophils/100 leukocytes in Blood by Automated count 2.8 % 0-7 N [facility] Eosinophils [#/volume] in Blood by Automated count 0.3 U 0.0-0.5 N [facility] Basophils/100 leukocytes in Blood by Automated count 0.6 % 0.4-1 .3 N [facility] Basophils [#/volume] in Blood by Automated count 0.1 U 0.0-0.2 N [facility] NUCLEATED RED BLOOD CELL 0 % [facility] NUCLEATED RED BLOOD CELL# 0 U [facility] Immature granulocytes [Presence] in Blood by Automated count 0-2 N [facility] Immature granulocytes [#/volume] in Blood by Automated count 0.0 U 0-0.1 N [facility] Manual Differential panel - Blood NO [facility] ID Date Data Source [id number] 04/23/2020 04:20:00 PM EST [facility] <0.90 Index Interpretation ----- < 0.90 Negative [...] when erythemamigrans is apparent.THIS TEST WAS PERFORMED AT:[facility] [id number] CHO Reportable Result Name Value Range Interpretation Code Description Data Leighann rce(s) Supporting Document(s) Urea nitrogen [Mass/volume] in Serum or Plasma 7 mg/dL 9-23 Below low normal [facility] Sodium [Moles/volume] in Serum or Plasma 140 mmol/L 132-146 N [facility] Potassium [Moles/volume] in Serum or Plasma 4.3 mmol/L 3.5-5.5 [facility] Chloride [Moles/volume] in Serum or Plasma 107 mmol/L 99-109 [facility] Carbon dioxide, total [Moles/volume] in Serum or Plasma 29 mmol/L 20 -31 N [facility] Anion gap in Serum or Plasma 8 mmol/L 8-16 [facility] Glucose [Mass/volume] in Serum or Plasma 85 mg/dL 74-106 N [facility] Creatinine 0.7 mg/dL 0.5-1.1 [facility] Glomerular filtration rate/1.73 sq M.pre dicted [Volume Rate/Area] in Serum or Plasma Greater Than 60 ABOVE 60 [facility] Alanine aminotransferase [Enzymatic acti vity/volume] in Serum or Plasma by With P-5'-P 16 U/L 10-49 N [facility] ital Aspartate aminotransferase [Enzymatic ac tivity/volume] in Serum or Plasma by With P-5'-P 7 U/L 0-33 N [facility] pital Alkaline phosphatase [Enzymatic activity/volume] in Serum or Plasma 49 U/L 45-129 N [facility] Calcium [Mass/volume] in Serum or Plasma 9.6 mg/dL 8.5-10.1 N [facility] Bilirubin.total [Mass/volume] in Serum or Plasma 0.3 mg/dL 0.3-1.2 [facility] Albumin [Mass/volume] in Serum or Plasma by Bromocresol purple (BCP) dye binding method 4.4 g/dL 3.2-4.8 N [facility] ital Protein [Mass/volume] in Serum or Plasma 7.5 g/dL 5.7-8.2 [facility] ID Date Data Source [id number] 04/27/2020 07:23:00 PM EST [facility] <0.90 Index Interpretation ----- < 0.90 Negative [...] when erythemamigrans is apparent.THIS TEST WAS PERFORMED AT:[facility] [id number] CHO Reportable Result Name Value Range Interpretation Code Description Data Leighann rce(s) Supporting Document(s) Borrelia burgdorferi Ab [Units/volume] in Serum by Immunoassay <0.9 0 index [facility] Index Interpretation ----- < 0.90 Negative 0.90-1.09 Equivocal > 1.09 PositiveAs recommended by the Food and Drug Administration(FDA), all samples with positive or equivocalresults in a Borrelia burgdorferi antibody screenwill be tested using a blot method. Positive orequivocal screening test results should not beinterpreted as truly positive until verified as suchusing a supplemental assay (e.g., B. burgdorferi blot).The screening test and/or blot f or B. burgdorferiantibodies may be falsely negative in early stagesof Lyme disease, including the period when erythemamigrans is apparent.THIS TEST WAS PERFORMED AT:[facility] [id number] MERATI,MD ID Date Data Source 04/23/2020 03:57:00 PM [facility] <0.90 Index Interpretation ----- < 0.90 Negative [...] when erythemamigrans is apparent.THIS TEST WAS PERFORMED AT:[facility] [id number] MERATI,MDNo Reportable Result Name Value Range Interpretation Code Description Data Leighann rce(s) Supporting Document(s) Erythrocyte sedimentation rate by Westergren method 5 mm/hr 0-20 N [facility] @Reenter manual test result: 5@by Karey Ireland at 04/23/20 1556. ID Date Data Source [id number] 04/23/2020 04:20:00 PM [facility] <0.90 Index Interpretation ----- < 0.90 Negative [...] when erythemamigrans is apparent.THIS TEST WAS PERFORMED AT:[facility] [id number] CHO Reportable Result Name Value Range Interpretation Code Description Data Leighann rce(s) Supporting Document(s) C reactive protein [Mass/volume] in Serum or Plasma Less Than 2.9 0.0 -5.0 N [facility] @Report as less than lower limit ID Date Data Source [id number] 04/23/2020 04:20:00 PM [facility] <0.90 Index Interpretation ----- < 0.90 Negative [...] when erythemamigrans is apparent.THIS TEST WAS PERFORMED AT:[facility] [id number] CHO Reportable Result Name Value Range Interpretation Code Description Data Leighann rce(s) Supporting Document(s) Thyroxine (T4) free [Mass/volume] in Serum or Plasma 1.19 ng/dL 0.89- 1.76 [facility] ID Date Data Source [id number] 04/23/2020 04:20:00 PM [facility] <0.90 Index Interpretation ----- < 0.90 Negative [...] when erythemamigrans is apparent.THIS TEST WAS PERFORMED AT:[facility] [id number] CHO Reportable Result Name Value Range Interpretation Code Description Data Leighann rce(s) Supporting Document(s) Thyrotropin [Units/volume] in Serum or Plasma by Detec tion limit <= 0.005 mIU/L 1.37 u[iU]/mL 0.35-5.50 N [facility] ID Date Data Source [id number] 04/23/2020 04:20:00 PM [facility] <0.90 Index Interpretation ----- < 0.90 Negative [...] when erythemamigrans is apparent.THIS TEST WAS PERFORMED AT:[facility] [id number] CHO Reportable Result Name Value Range Interpretation Code Description Data Leighann rce(s) Supporting Document(s) Rheumatoid factor [Units/volume] in Serum by Nephelometry Le ss Than 10.0 0.0-14.0 N [facility] ID Date Data Source [id number] 04/23/2020 03:02:00 PM EST [place] ([facility]) Name Value Range Interpretation Code Description Data Leighann rce(s) Supporting Document(s) Reported Physicians See Note Reported [facility] ([facility]) Note: Reported Physicians:Ordering: Henrik Parekh LAttending: Henrik Zavala ID Date Data Source [id number] 04/23/2020 03:02:00 PM [facility] ([facility]) Name Value Range Interpretation Code Description Data Leighann rce(s) Supporting Document(s) Rheumatoid factor [Units/volume] in Serum by Nephelometry Less T hood 10.0 Normal Rheumatoid fact Ser Neph[facility] Note: Responsible Observer: RA Rheumatoi d Factor 800.1055 (B) ID Date Data Source [id number] 04/23/2020 03:02:00 PM [facility] ([facility]) Name Value Range Interpretation Code Description Data Leighann rce(s) Supporting Document(s) Reported Physicians See Note Reported [facility] ([facility]) Note: Reported Physicians:Ordering: Henrik Parekh LAttending: Henrik Zavala ID Date Data Source [id number] 04/23/2020 03:02:00 PM [facility] ([facility]) Name Value Range Interpretation Code Description Data Leighann rce(s) Supporting Document(s) Thyroxine (T4) free [Mass/volume] in Serum or Plasma 1 .19 NanoGramsPerDeciLiter_[Mass_Concentration_Units] Normal T4 Free [facility] Note: Responsible Observer: FREE T4 Free Thyroxine 600.7005 (D) ID Date Data Source [id number] 04/23/2020 03:02:00 PM [facility] ([facility]) Name Value Range Interpretation Code Description Data Leighann rce(s) Supporting Document(s) Reported Physicians See Note Reported [facility] ([facility]) Note: Reported Physicians:Ordering: Henrik Parekh LAttending: Henrik Zavala ID Date Data Source [id number] 04/23/2020 03:02:00 PM [facility] ([facility]) Name Value Range Interpretation Code Description Data Leighann rce(s) Supporting Document(s) Thyrotropin [Units/volume] in Serum or Plasma by Detec tion limit <= 0.005 mIU/L 1.37 MicroInternationalUnitsPerMilliLiter_[Arbitrary_Con Nor mal TSH SerPl DL<=0.005 mIU/L-[facility] ([facility]) Note: Responsible Observer: TSH TSH 600 .7055 (D) ID Date Data Source [id number] 04/23/2020 03:02:00 PM [facility] ([facility]) Name Value Range Interpretation Code Description Data Leighann rce(s) Supporting Document(s) Reported Physicians See Note [facility] Note: Reported Physicians:Ordering: Henrik Parekh: Henrik Zavala ID Date Data Source [id number] 04/23/2020 03:02:00 PM [facility] ([facility]) Name Value Range Interpretation Code Description Data Leighann rce(s) Supporting Document(s) C reactive protein [Mass/volume] in Serum or Plasma Less Than 2.9 Normal CRP [facility]Pl-[facility] ([facility]) Note: @Report as less than lower limitRe sponsible Observer: CRP C-Reactive Protein 401.4355 (H) ID Date Data Source [id number] 04/23/2020 03:02:00 PM [facility] ([facility]) Name Value Range Interpretation Code Description Data Leighann rce(s) Supporting Document(s) Erythrocyte sedimentation rate by Westergren method 5 Normal ESR Bld Qn [facility] ([facility]) Note: @Reenter manual test result: 5@by Karey Ireland at 04/23/20 1556.Responsible Observer: SED RATE SED RATE 100.6400 (B) ID Date Data Source [id number] 04/23/2020 03:02:00 PM [facility] ([facility]) Name Value Range Interpretation Code Description Data Leighann rce(s) Supporting Document(s) Reported Physicians See Note Reported Physic ans [place] ([facility]) Note: Reported Physicians:Ordering: Henrik Parekh: Henrik Zavala ID Date Data Source [id number] 04/23/2020 03:02:00 PM [facility]) Name Value Range Interpretation Code Description Data Leighann rce(s) Supporting Document(s) Borrelia burgdorferi Ab [Units/volume] in Serum by Immunoassay See Note B burgdor Ab Ser IA-[facility] ([facility]) Note: <0.90 Index Interpretation ----- < 0.90 [...] when erythemamigrans is apparent.THIS TEST WAS PERFORMED AT:[facility] [id number] CHO Reportable ResultLTNPNo Reportable ResultLLEP.LIVENTNPResponsible Observer: LYME AB SCREEN LYME AB SCREEN [id number] [phone] ([employer]) ID Date Data Source [id number] 04/23/2020 03:02:00 PM [facility]) Name Value Range Interpretation Code Description Data [facility] rce(s) Supporting Document(s) Alanine aminotransferase [Enzymatic acti vity/volume] in Serum or Plasma by With P-5'-P 16 enzyme_unit_per_liter Normal ALT SerPl w P-5' [facility] [place] ([facility]) Note: Responsible Observer: SGPT/ALT SGP T/ALT 400.1750 (G) Calcium [Mass/volume] in Serum or Plasma 9.6 MilliGramsPerDeciLiter_[Mass_Concentration_Units] Normal Calcium SerPl-nc [place] ([facility]) Note: Responsible Observer: Calcium Calc ium 400.2500 (G) Bilirubin.total [Mass/volume] in Serum or Plasma 0.3 MilliGramsPerDeciLiter_[Mass_Concentration_Units] Normal Bilirub [facility] ([facility]) Note: Responsible Observer: T LAVONNE Total Bilirubin 400.2600 (G) Carbon dioxide, total [Moles/volume] in Serum or Plasm a 29 MilliMolesPerLiter_[Substance_Concentration_Units] Normal CO2 [facility] ([facility]) Note: Responsible Observer: CO2 Carbon D ioxide 400.1400 (G) Chloride [Moles/volume] in Serum or Plasma 107 MilliMolesPerLiter_[Substance_Concentration_Units] Normal Chloride [facility] ([facility]) Note: Responsible Observer: Chloride Chl oride 400.1250 (G) Glucose [Mass/volume] in Serum or Plasma 85 MilliGramsPerDeciLiter_[Mass_Concentration_Units] Normal Glucose [facility] ([facility]) Note: Responsible Observer: Glucose Gluc ose 400.1500 (G) Potassium [Moles/volume] in Serum or Plasma 4.3 MilliMolesPerLiter_[Substance_Concentration_Units] Normal Potassium [facility] ([facility]) Note: Responsible Observer: K Potassium 400.1210 (G) Protein [Mass/volume] in Serum or Plasma 7.5 GramsPerDeciLiter_[Mass_Concentration_Units] Normal Pro t [facility] ([facility]) Note: Responsible Observer: TP Total Pro tein 400.2800 (G) Aspartate aminotransferase [Enzymatic ac tivity/volume] in Serum or Plasma by With P-5'-P 7 enzyme_unit_per_liter Normal AST [facility] w P-5'- P-[facility] ([facility]) Note: Responsible Observer: SGOT / AST S GOT / AST 400.1900 (G) Sodium [Moles/volume] in Serum or Plasma 140 MilliMolesPerLiter_[Substance_Concentration_Units] Normal Sodium [facility] ([facility]) Note: Responsible Observer: Sodium Sodiu m 400.1100 (G) Urea nitrogen [Mass/volume] in Serum or Plasma 7 MilliGramsPerDeciLiter_[Mass_Concentration_Units] Below low normal BUN [facility] ([facility]) Note: Responsible Observer: BUN Blood Ur ea Nitrogen 400.1000 (G) Albumin [Mass/volume] in Serum or Plasma by Bromocresol purple (BCP) dye binding method 4.4 GramsPerDeciLiter_[Mass_Concentration_Units] Normal Albumin SerPl BCP-mCnc [place] ([facility]) Note: Responsible Observer: Albumin [place] min 400.2700 (G) Anion gap in Serum or Plasma 8 MilliMolesPerLiter_[Substance_Concentration_Units] Normal Anion Gap [facility] [place] ([facility]) Note: Responsible Observer: ANION GAP AN ION GAP 400.1402 (E) Alkaline phosphatase [Enzymatic activity/volume] in Se rum or Plasma 49 enzyme_unit_per_liter Normal ALP [facility]-cCnc [place] ( [facility]) Note: Responsible Observer: ALP Alkaline Phosphatase 400.2000 (G) Glomerular filtration rate/1.73 sq M.pre dicted [Volume Rate/Area] in Serum or Plasma Greater Than 60 GFR/BSA.pred SerPlBld-ArV Rat [place] ([facility]) Note: Responsible Observer: GFR Glomerul ar Filt Rate Calc 400.1605 (D) Creatinine [Moles/volume] in Vitreous fluid 0.7 MilliGramsPerDeciLiter_[Mass_Concentration_Units] Normal Creatinine [place] ([facility]) Note: Responsible Observer: Creatinine C reatinine 400.1600 (G) ID Date Data Source [id number] 04/23/2020 03:02:00 PM EST [place] ([facility]) Name Value Range Interpretation Code Description Data Leighann rce(s) Supporting Document(s) Erythrocyte mean corpuscular volume [Ent itic volume] in Cord blood by Automated count 92.7 FemtoLiter_[SI_Volume_Units] Normal MCV Bld Co Auto [place] ([facility]) Note: Responsible Observer: MCV MCV 100 .0600 (B) Erythrocyte distribution width [Entitic volume] by Automated cou nt 13 percent Normal RDW RBC Auto [place] ([facility]) Note: Responsible Observer: RDW RDW 100 .0900 (B) Manual Differential panel - Blood NO Ma nual diff Bld [place] ([facility]) Note: Responsible Observer: CBC Manual D ifferential Added 100.1990 (B) Immature granulocytes [Presence] in Blood by Automated count See No te Normal Imm Granulocytes Bld Ql Auto [place] ([facility]) Note: [id number] Ob tower observer: IG% IG% 100.1375 (B) Platelet mean volume [Entitic volume] in Blood 9.9 FemtoLite r_[SI_Volume_Units] Normal PMV Bld [place] ([facility]) Note: Responsible Observer: MPV MPV 100 .1100 (B) Hematocrit [Volume Fraction] of Blood by Automated count 45.8 perce nt Normal Hct VFr Bld Auto [place] ([facility]) Note: Responsible Observer: HEMATOCRIT H EMATOCRIT 100.0500 (B) Immature granulocytes [#/volume] in Blood by Automated count 0.0 Un it Imm Granulocytes # Bld Auto [place] ([facility]) Note: Responsible Observer: IG# IG# 100 .1400 (B) Erythrocyte mean corpuscular hemoglobin concentration [Mass/volume] in Cord blood 32.5 GramsPerDeciLiter_[Mass_Concentration_Units] Below low normal MCHC BldCo-mCnc [place] ([facility]) Note: Responsible Observer: MCHC MCHC 1 00.0800 (B) Monocytes/100 leukocytes in Blood by Automated count 4.2 percent Normal Monocytes/leuk NFr Bld Auto [place] ([facility]) Note: Responsible Observer: MONO % MONO % 100.1225 (B) Hemoglobin [Moles/volume] in Blood 14.9 GramsPerDeciLiter_[Mass_Concentration_Units] Normal Hgb Bld-sCnc [place] ([facility]) Note: Responsible Observer: HGB HEMOGLOB IN 100.0400 (B) Basophils [#/volume] in Blood by Automated count 0.1 Unit Normal Basophils # Bld Auto [place] ([facility]) Note: Responsible Observer: BASO # BASO# 100.1350 (B) Leukocytes [#/volume] in Blood by Automated count 9.0 ThousandsPerMicroLiter_[Number_Concentration_Units] Normal WBC # Bld Auto [place] ([facility]) Note: Responsible Observer: WBC WHITE BL OOD COUNT 100.0100 (E) Basophils/100 leukocytes in Blood by Automated count 0.6 percent Normal Basophils/leuk NFr Bld Auto [place] ([facility]) Note: Responsible Observer: BASO % BASO % 100.1325 (B) Eosinophils [#/volume] in Blood by Automated count 0.3 Unit Normal Eosinophil # Bld Auto [place] ([facility]) Note: Responsible Observer: EOS # EOS# 100.1300 (D) Eosinophils/100 leukocytes in Blood by Automated count 2.8 percent Normal Eosinophil/leuk NFr Bld Auto [place] ([facility]) Note: Responsible Observer: EOS % EOS % 100.1275 (B) Lymphocytes [#/volume] in Blood by Automated count 3.1 Unit Normal Lymphocytes # Bld Auto [place] ([facility]) Note: Responsible Observer: LYMPH # LYMP H# 100.1200 (B) Lymphocytes/100 leukocytes in Blood by Automated count 34.9 percent Normal Lymphocytes/leuk NFr Bld Auto [place] ([facility]) Note: Responsible Observer: LYMPH % LYMP H % 100.1175 (B) Monocytes [#/volume] in Blood by Automated count 0.4 Unit Normal Monocytes # Bld Auto [place] ([facility]) Note: Responsible Observer: MONO # MONO# 100.1250 (C) Neutrophils/100 leukocytes in Blood by Automated count 57.3 percent Normal Neutrophils/leuk NFr Bld Auto [place] ([facility]) Note: Responsible Observer: NEUT% NEUT% 100.1125 (B) Neutrophils [#/volume] in Blood by Automated count 5.1 Unit Normal Neutrophils # Bld Auto [place] ([facility]) Note: Responsible Observer: NEUT# NEUT# 100.1150 (B) Erythrocyte mean corpuscular hemoglobin [Entitic mass] by Automated count 30.2 PicoGram_[SI_Mass_Units] Normal MCH RBC Qn Auto [place] ([facility]) Note: Responsible Observer: MCH MCH 100 .0700 (B) Platelets [#/volume] in Blood by Automated count 314 ThousandsPerMicroLiter_[Number_Concentration_Units] Normal Platelet # Bld Auto [place] ([facility]) Note: Responsible Observer: PLATELET COU NT PLATELET COUNT 100.1000 (D) Erythrocytes [#/volume] in Blood by Automated count 4. 94 MillionsPerMicroLiter_[Number_Concentration_Units] Normal RBC # Bld Auto [place] ([facility]) Note: Responsible Observer: RBC Red Bloo d Count 100.0300 (B) NUCLEATED RED BLOOD CELL# 0 Unit NUCLEATED RED BLOOD CELL# [place] ([facility]) Note: Responsible Observer: NRBC# NUCLEA LANDON RBC 100.1362 (A) NUCLEATED RED BLOOD CELL 0 percent NUCLEATED R ED BLOOD CELL [place] ([facility]) Note: Responsible Observer: NRBC% NRBC% 100.1360 (B) Procedure Social History Code Duration Value Status Description Data Source(s ) Smoking 10/30/2020 12:00:00 AM EDT Former Smoker completed Former Smoker eCW1 ([facility]) Smoking 09/18/2020 12:00:00 AM EDT Former Smoker completed Former Smoker eCW1 ([facility]) Smoking 09/18/2020 12:00:00 AM EDT Former Smoker completed Former Smoker eCW1 ([facility]) Smoking 09/18/2020 12:00:00 AM EDT Former Smoker completed Former Smoker eCW1 ([facility]) Smoking 09/18/2020 12:00:00 AM EDT Former Smoker completed Former Smoker eCW1 ([facility]) Smoking 09/18/2020 12:00:00 AM EDT Former Smoker completed Former Smoker eCW1 ([facility]) Vital Signs ID Date Data Source UNK Name Value Range Interpretation Code Description Data Source(s) Systolic blood pressure 126 mm[Hg] 126 mm[Hg] [facility] Diastolic blood pressure 82 mm[Hg] 82 mm[Hg] [place] ([facility]) Heart rate 74 /min 74 /min [place] ([facility]) Body height 68 [in_i] 68 [in_i] [place] ([facility]) Body weight 147 [lb_av] 147 [lb_av] [place] ([facility]) Body mass index (BMI) [Ratio] 22.4 kg/m2 22.4 k g/m2 [place] ([facility]) Body surface area Derived from formula 1.79 m2 1.79 m2 [facility]) Heart rate 110 /min 110 /min [facility] Body weight 149.8 [lb_av] 149.8 [lb_av] eCW1 ([facility]) Body weight 67.95 kg 67.95 kg eCW1 ([facility]) Body height 68 [in_i] 68 [in_i] eCW1 ([facility]) Body mass index (BMI) [Ratio] 22.77 kg/m2 22.77 kg/m2 eCW1 ([facility]) Respiratory rate 20 /min 20 /min eCW1 ([facility]) Body temperature 97.8 [degF] 97.8 [degF] eCW1 ( [facility]) Systolic blood pressure 108 mm[Hg] 108 mm[Hg] e CW1 ([facility]) Diastolic blood pressure 76 mm[Hg] 76 mm[Hg] eCW1 ([facility]) Body height 68 [in_i] 68 [in_i] [facility], [facility] 5'8" Body mass index (BMI) [Ratio] 22.0 kg/m2 22.0 k g/m2 [facility], [facility] [place] body weight 140 [lb_av] 140 [lb_av] MED[place] T ([facility], ) Body weight 65.772 kg 65.772 kg [facility] ([facility]) Body surface area Derived from formula 1.78 m2 1.78 m2 [facility] ([facility], ) Systolic blood pressure 125 mm[Hg] 125 mm[Hg] M [place] ([facility], ) Body weight 145.00 [lb_av] 145.00 [lb_av] MEDEN T ([facility], ) Diastolic blood pressure 86 mm[Hg] 86 mm[Hg] [facility] ([facility], ) Systolic blood pressure 120 mm[Hg] 120 mm[Hg] [facility] Diastolic blood pressure 80 mm[Hg] 80 mm[Hg] [facility] ([facility]) Heart rate 72 /min 72 /min [facility] ([facility], ) Body height 68 [in_i] 68 [in_i] [facility], [facility] 5'8" Body weight 141.00 [lb_av] 141.00 [lb_av] MED[facility] T ([facility], ) Body mass index (BMI) [Ratio] 21.4 kg/m2 21.4 k g/m2 [facility] ([facility], ) [place] body weight 140 [lb_av] 140 [lb_av] MED[place] T ([facility], ) Body weight 141.0 [lb_av] 141.0 [lb_av] eCW1 ([facility]) Body weight 63.9 kg 63.9 kg eCW1 ([facility]) Body height 68 [in_i] 68 [in_i] eCW1 ([facility]) Body mass index (BMI) [Ratio] 21.44 kg/m2 21.44 kg/m2 W1 ([facility]) Heart rate 91 /min 91 /min eCW1 [facility] Respiratory rate 20 /min 20 /min eCW1 ([facility]) Body temperature 98.3 [degF] 98.3 [degF] eCW1 ( [facility]) Systolic blood pressure 112 mm[Hg] 112 mm[Hg] e CW1 ([facility]) Diastolic blood pressure 64 mm[Hg] 64 mm[Hg] eCW1 ([facility]) Systolic blood pressure 118 mm[Hg] 118 mm[Hg] G [place] ([facility]) Diastolic blood pressure 76 mm[Hg] 76 mm[Hg] [place] ([facility]) Heart rate 72 /min 72 /min [place] ([facility]) Respiratory rate 20 /min 20 /min [place] ([facility]) Body height 68 [in_i] 68 [in_i] [place] ([facility]) Body weight 139 [lb_av] 139 [lb_av] [place] ([facility]) Body mass index (BMI) [Ratio] 21.1 kg/m2 21.1 k g/m2 [place] ([facility]) Body surface area Derived from formula 1.75 m2 1.75 m2 [place] ([facility]) Diastolic blood pressure 72 mm[Hg] 72 mm[Hg] [place] ([facility]) Heart rate 72 /min 72 /min [place] ([facility]) Respiratory rate 18 /min 18 /min [place] ([facility]) Body height 68 [in_i] 68 [in_i] [place] ([facility]) Body weight 139.8 [lb_av] 139.8 [lb_av] [facility] ([facility]) Body mass index (BMI) [Ratio] 21.3 kg/m2 21.3 k g/m2 [place] ([facility]) Body surface area Derived from formula 1.76 m2 1.76 m2 [place] ([facility]) Systolic blood pressure 116 mm[Hg] 116 mm[Hg] G [facility] ([facility]) Systolic blood pressure 120 mm[Hg] 120 mm[Hg] G [facility] ([facility]) Diastolic blood pressure 74 mm[Hg] 74 mm[Hg] [place] ([facility]) Heart rate 68 /min 68 /min [place] ([facility]) Respiratory rate 20 /min 20 /min [place] ([facility]) Body height 68 [in_i] 68 [in_i] [place] ([facility]) Body weight 141 [lb_av] 141 [lb_av] [place] ([facility]) Body mass index (BMI) [Ratio] 21.4 kg/m2 21.4 k g/m2 [place] ([facility]) Body surface area Derived from formula 1.76 m2 1.76 m2 [place] ([facility]) Patient Treatment Plan of Care Planned Activity Planned Date Details Description Data Source (s) Zolpidem tartrate 10 MG Oral Tablet 10/16/2020 12:00:00 AM EDT [place] ([facility]) Clonazepam 1 MG Oral Tablet 10/13/2020 12:00:00 AM EDT [place] ([facility]) Nortriptyline 25 MG Oral Capsule 10/13/2020 12:00:00 AM EDT [place] ([facility]) Ergocalciferol 37486 UNT Oral Capsule 10/08/2020 12:00:00 AM EDT eCW1 ([facility]) Ergocalciferol 13981 UNT Oral Capsule 10/08/2020 12:00:00 AM EDT eCW1 ([facility]) Ergocalciferol 27443 UNT Oral Capsule 10/08/2020 12:00:00 AM EDT eC ([facility]) Sertraline 100 MG Oral Tablet 08/05/2020 12:00:00 AM [facility] ([facility]) Sertraline 50 MG Oral Tablet 07/31/2020 12:00:00 AM [facility] ([facility]) Clonazepam 1 MG Oral Tablet 06/11/2020 12:00:00 AM [facility] ([facility]) Zolpidem tartrate 10 MG Oral Tablet 05/07/2020 12:00:00 AM [facility]) Clonazepam 1 MG Oral Tablet 05/01/2020 12:00:00 AM [facility]) Suvorexant 20 MG Oral Tablet [Belsomra] 05/01/2020 12:00:00 AM [facility]) Suvorexant 20 MG Oral Tablet [Belsomra] 04/24/2020 12:00:00 AM [facility]) Clonazepam 1 MG Oral Tablet 04/01/2020 12:00:00 AM [facility]) Sertraline 50 MG Oral Tablet 03/23/2020 12:00:00 AM [facility]) Clonazepam 1 MG Oral Tablet 02/27/2020 12:00:00 AM [facility]) Sertraline 50 MG Oral Tablet 01/27/2020 12:00:00 AM [facility]) Clonazepam 1 MG Oral Tablet 01/22/2020 12:00:00 AM [facility]) Nortriptyline 25 MG Oral Capsule 2019 12:00:00 AM [facility]) Clonazepam 1 MG Oral Tablet 09/02/2019 12:00:00 AM [facility] ([facility])
[2021-01-18] MEDS ORDERED: propofoL 500 MG/50 ML VIAL As Ordered ONE (09:48)
[2021-01-18] MEDS ORDERED: propofoL 200 MG/20 ML VIAL As Ordered ONE (10:40)
--- NOTE | 2021-01-18 10:49 | ROOR ---
Patient Name: Cathryn Head Procedure Date: 01/18/2021 10:09 AM Date of : 1980 Age: 40 Room: [facility] Gender: Female Note Status: Finalized Procedure: Colonoscopy Indications: Generalized abdominal pain, Suspected irritable bowel syndrome, Irritable bowel syndrome with constipation, Constipation Providers: Massimo Mora MD Referring MD: BRIAN TITUS MD Requesting Provider: Medicines: Monitored Anesthesia Care Complications: No immediate complications. Procedure: Pre-Anesthesia Assessment: - The heart rate, respiratory rate, oxygen saturations, blood pressure, adequacy of pulmonary ventilation, and response to care were monitored throughout the procedure. The Colonoscope was introduced through the anus and advanced to the terminal ileum, with identification of the appendiceal orifice and IC valve. The colonoscopy was somewhat difficult due to a redundant colon. Successful completion of the procedure was aided by applying abdominal pressure. The patient tolerated the procedure well. The quality of the bowel preparation was good. Findings: The perianal and digital rectal examinations were normal. The colon (entire examined portion) was moderately redundant. Small Internal Hemorrhoids. The exam was otherwise without abnormality on direct and retroflexion views. Impression: - Small Internal Hemorrhoids. - Somewhat redundant, but otherwise normal colon on direct and retroflexion views. - No specimens collected. - (Irritable Bowel Syndrome with constipation/IBS-C suspected.) Recommendation: - Use Linzess (linaclotide) 290 mcg PO daily. Procedure Code(s): --- Professional --- 64309, Colonoscopy, flexible; diagnostic, including collection of specimen(s) by brushing or washing, when performed (separate procedure) Diagnosis Code(s): --- Professional --- Q43.8, Other specified congenital malformations of intestine K59.00, Constipation, unspecified K58.1, Irritable bowel syndrome with constipation R10.84, Generalized abdominal pain CPT copyright 2019 [employer]. All rights reserved. The codes documented in this report are preliminary and upon clinical coder review may be revised to meet current compliance requirements. Massimo Mora MD Massimo Mora MD 01/18/2021 10:48:35 AM Electronically signed by Massimo Mora MD Number of Addenda: 0 Note Initiated On: 01/18/2021 10:09 AM Estimated Blood Loss: Estimated blood loss: none.
[2021-01-18 11:05] VITALS: BP 124/89
== END 2021-01-18 11:11 | disposition home or self-care (01) ==
LOC: M OPP 09:18
PROVIDERS: ATTEND Internal Medicine Gastroenterology
DX: Q43.8 Other specified congenital malformations of intestine (principal); K58.1 Irritable bowel syndrome with constipation; R10.84 Generalized abdominal pain; K64.8 Other hemorrhoids; G43.909 Migraine, unspecified, not intractable, without status migrainosus; Z79.899 Other long term (current) drug therapy

== ENCOUNTER → 2021-03-01 | Outpatient (CLI) | payer OTHER ==
[~2021-03-01] MED LIST changes: -NS 1,000 ML IV ONE; +ZONI25CA13 PO
== END ==
LOC: M LABSMTC 13:32
PROVIDERS: ATTEND Anesthesiology
DX: Z01.818 Encounter for other preprocedural examination (principal); Z11.52 Encounter for screening for COVID-19

== ENCOUNTER → 2021-03-10 | Outpatient (CLI) | payer OTHER ==
[~2021-03-10] MED LIST changes: +E-Z-GAS II EFFERVESCENT PACKET (SODIUM BICARB./CITRIC ACID/SIMETHICONE) As Ordered ONE; +E-Z-HD 98% w/w 340GM SUSP BTL As Ordered ONE; +E-Z-PAQUE 96% w/w SUSP 176GM BTL As Ordered ONE
== END ==
LOC: M RAD 07:58
PROVIDERS: ATTEND Physician Assistant Medical
DX: K21.9 Gastro-esophageal reflux disease without esophagitis (principal); R93.3 Abnormal findings on diagnostic imaging of other parts of digestive tract; R07.0 Pain in throat